=== PATIENT | female | born 1955 | race Hispanic/Latino ===

== ENCOUNTER 2018-06-02 15:25 | Outpatient (CLI) | payer OTHER | END 2018-06-02 15:26 | disposition home or self-care (01) | LOC: BICULT 15:25 | PROVIDERS: ATTEND Internal Medicine | DX: R09.89 Other specified symptoms and signs involving the circulatory and respiratory systems (principal); I65.21 Occlusion and stenosis of right carotid artery | CPT/HCPCS: 93880 ==

== ENCOUNTER 2018-12-31 22:30 | Emergency (ER) | payer SELFPAY ==
--- NOTE | 2018-12-31 23:02 | RAD ---
CHEST TWO VIEWS: 12/31/18 HISTORY: Cough, x 2 weeks. COMPARISON: 06/16/15. FINDINGS: Normal cardiac silhouette. The lungs and pulmonary vessels and hilum are normal. Costophrenic angles are clear. Hyperinflation with chronic changes. No masses. No consolidation. No pneumothorax or osseo us abnormalities. IMPRESSION: No acute cardiopulmonary process. POS: [facility]
[2018-12-31] MEDS ORDERED: cloNIDine 0.1 MG TAB ONE (23:35)
== END 2019-01-01 00:26 | disposition home or self-care (01) ==
LOC: ERS 22:30
DX: J20.9 Acute bronchitis, unspecified (principal); I10 Essential (primary) hypertension; E11.9 Type 2 diabetes mellitus without complications; E78.5 Hyperlipidemia, unspecified; Z79.899 Other long term (current) drug therapy; Z79.4 Long term (current) use of insulin
CPT/HCPCS: 71046; 93005

== ENCOUNTER 2019-07-19 21:32 | Inpatient (IN) | payer MEDICAID, SELFPAY ==
[~2019-07-19 21:32] MED LIST: ISOVUE-370 76%-LOCM 1 ML ONE
--- NOTE | 2019-07-19 21:56 | RAD ---
XR Chest 1 View Portable History: Shortness of breath and cough Comparison: Radiograph December 31, 2018 Findings: Abnormal opacities throughout both lower lobes, lingula, right middle lobe, both upper lobe s. Small effusions. No pneumothorax. No acute osseous abnormality. Impression: Findings concerning for multifocal pneumonia. Follow-up after treatment recommended.
[2019-07-19 22:14] LABS: #Basophils 0.1 thou/uL (0.0-0.2); #Eosinphils 0.1 thou/uL (0.0-0.7); #Lymphocytes 1.8 thou/uL (1.20-3.40); #Monocytes 0.6 thou/uL (0.11-0.59); #Neutrophils 8.8 thou/uL (1.40-6.50); %Basophils 0.6 % (0.0-1.0); %Eosinophils 0.5 % (0.0-10.0); %Lymphocytes 15.8 % (21.0-51.0); %Monocytes 4.9 % (0.0-10.0); %Neutrophils 78.2 % (42.0-75.0); Hemoglobin 8.1 g/dL (12.0-16.0); Mean Corpuscular HGB CONC 33.6 g/dL (32.0-36.0); Mean Corpuscular Volume 80.3 fL (78.0-98.0); Mean Platelet Volume 7.4 fL (7.4-10.4); Platelet Count 339 thou/uL (130-400); RBC Distribution Width 13.3 % (11.5-14.5); Red Blood Cell (RBC) Count 3.02 mill/uL (4.20-5.40); White Blood Cell (WBC) Count 11.2 thou/uL (4.8-10.8)
[2019-07-19] MEDS ORDERED: Azithromycin 500 MG VIAL ONE (22:15)
[2019-07-19 22:37] LABS: ALT (SGPT) 61 U/L (8-55); AST (SGOT) 81 U/L (5-34); Albumin 3.5 g/dL (3.4-4.8); Alkaline Phosphatase 177 U/L (40-110); Anion Gap 15 mmol/L (10-20); BUN (Urea Nitrogen) 36 mg/dL (9.8-20.1); Bilirubin, Total 0.2 mg/dL (0.2-1.2); Calc. Creatinine Clearance 0 mL/min (70-130); Calcium 8.2 mg/dL (7.8-10.44); Carbon Dioxide 22 mmol/L (23-31); Chloride 96 mmol/L (98-107); Estimated GFR-MDRD 23; Globulin 3.5 g/dL (2.4-3.5); Glucose 306 mg/dL (80-115); Potassium 4.9 mmol/L (3.5-5.1); Sodium 128 mmol/L (136-145)
[2019-07-19] MEDS ORDERED: Enoxaparin Sodium 100 MG/ML SYRINGE ONE (22:54)
[2019-07-19] MEDS ORDERED: Aspirin Chewable 81 MG TAB ONE (22:54)
[2019-07-19] MEDS ORDERED: Ondansetron PF 4 MG/2 ML Vial ONE (23:02)
[2019-07-19 23:06] LABS: CKMB 2.6 ng/mL (0-6.6)
[2019-07-19] MEDS ORDERED: Norepinephrine 4 MG/4 ML VIAL ONE (23:24)
[2019-07-19] MEDS ORDERED: EPINEPHrine 1 MG/10 ML Abboject SYRINGE ONE (23:29)
[2019-07-19] MEDS ORDERED: EPINEPHrine 1 MG/ML AMP ONE (23:29)
[2019-07-19] MEDS ORDERED: Norepinephrine 8 MG in Dextrose 5% in Water 242 ML IVPB PRN (23:29)
[2019-07-19] MEDS ORDERED: Succinylcholine Chloride 20 MG/ML 10 ml SYRINGE FS ONE (23:33)
[2019-07-19] MEDS ORDERED: Ketamine 50 MG/ML (10ML VIAL) ONE (23:34)
[2019-07-19] MEDS ORDERED: fentaNYL Citrate/PF 2,000 MCG in Sodium Chloride 0.9% 60 ML IV SCH (23:49)
--- NOTE | 2019-07-19 23:59 | RAD ---
XR Chest 1 View Portable History: Intubation. OG tube. Comparison: Radiograph same day Findings: Patient is intubated endotracheal tube tip at level of clavicles in good position. Enteric tube tip is below diaphragm although out of field of view. Multiple airspace opacities are similar. Likely small effusions. Impression: Satisfactory placement of enteric and endotracheal tubes.
[2019-07-20 00:25] LABS: Actual Bicarbonate (HCO3a) 14.9 mEq/L (22-28); Analyzer IN Cardio ER; Base Excess (BEa) -11.7 mEq/L (-2.0 to +3.0); CO2 Tension 36.2 mmHg (35.0-45.0); Calcium, Ionized 1.04 mmol/L (1.12-1.30); Carboxyhemoglobin (COHb) 0.4 gm% (0.0-3.0); Hemoglobin (Hb) 7.8 g/dL (12.0-16.0); Potassium - ABG Lab 4.51 mmol/L (3.70-5.30)
[2019-07-20] MEDS ORDERED: Acetaminophen 650 MG Suppository PR PRN (00:28)
[2019-07-20] MEDS ORDERED: Ondansetron ODT 4 MG TAB PO PRN (00:28)
[2019-07-20] MEDS ORDERED: Ventilator Sedation Protocol 1 EACH FS SCH (00:28)
[2019-07-20] MEDS ORDERED: Norepinephrine 8 MG in Dextrose 5% in Water 242 ML IVPB SCH (00:30)
[2019-07-20 00:34] LABS: pH, Arterial 7.23 (7.35-7.45)
[2019-07-20 00:35] LABS: O2 Tension (PaO2) 45.6 mmHg (> 80.0); Puncture Site RBA
[2019-07-20] MEDS ORDERED: Propofol 1,000 MG/100 ML VIAL IV ONE (00:41)
[2019-07-20] MEDS ORDERED: cefTRIAXone\\ROCEPHIN 2 GM VIAL ONE (00:41)
[2019-07-20] MEDS ORDERED: Morphine 2 MG/ML SYRINGE SLOW IVP PRN (00:42)
[2019-07-20] MEDS ORDERED: fentaNYL Citrate/PF 2,000 MCG in Sodium Chloride 0.9% 60 ML IV SCH (00:42)
[2019-07-20] MEDS ORDERED: Fentanyl BOLUS 250 ML IVPB PRN (00:42)
[2019-07-20] MEDS ORDERED: DISCONTINUE PREVIOUS NARCOTIC PAIN MEDICATIONS AND BENZODIAZEPINES FS SCH (00:42)
[2019-07-20] MEDS ORDERED: Propofol 1,000 MG/100 ML VIAL IV PRN (00:42)
[2019-07-20] MEDS ORDERED: Propofol BOLUS 1,000 MG/100 ML VIAL IV PRN (00:42)
[2019-07-20 01:52] LABS: Critical Call Chem Troponin I RESULT DECREASING; Troponin I 1.081 ng/mL (< 0.028)
[2019-07-20] MEDS ORDERED: Vancomycin HCl 1 GM in Premix Bag 1 BAG IVPB SCH (03:00)
[2019-07-20] MEDS ORDERED: Dextrose 50% Abboject 50 ML SYRINGE SLOW IVP PRN (05:18)
[2019-07-20] MEDS ORDERED: Dextrose 5% in Water 1,000 ML IV PRN (05:18)
[2019-07-20 05:30] LABS: #Monocytes 0.5 thou/uL (0.11-0.59); #Neutrophils 9.9 thou/uL (1.40-6.50); %Basophils 0.1 % (0.0-1.0); %Eosinophils 0.3 % (0.0-10.0); %Lymphocytes 8.6 % (21.0-51.0); %Monocytes 4.6 % (0.0-10.0); %Neutrophils 86.5 % (42.0-75.0); Hemoglobin 7.5 g/dL (12.0-16.0); Mean Corpuscular Hemoglobin 27.6 pg (27.0-31.0); Mean Corpuscular Volume 83.6 fL (78.0-98.0); Mean Platelet Volume 7.5 fL (7.4-10.4); Platelet Count 275 thou/uL (130-400); RBC Distribution Width 13.4 % (11.5-14.5); Red Blood Cell (RBC) Count 2.72 mill/uL (4.20-5.40); White Blood Cell (WBC) Count 11.4 thou/uL (4.8-10.8)
[2019-07-20 05:40] LABS: Anion Gap 15 mmol/L (10-20); BUN (Urea Nitrogen) 35 mg/dL (9.8-20.1); Calc. Creatinine Clearance 25 mL/min (70-130); Calcium 7.4 mg/dL (7.8-10.44); Carbon Dioxide 17 mmol/L (23-31); Chloride 99 mmol/L (98-107); Estimated GFR-MDRD 25; Glucose 383 mg/dL (80-115); Potassium 5.5 mmol/L (3.5-5.1); Sodium 125 mmol/L (136-145)
[2019-07-20 05:50] LABS: Critical Call Chem Troponin I RESULT DECREASING; Troponin I 1.067 ng/mL (< 0.028)
--- NOTE | 2019-07-20 06:45 | HP ---
CODE STATUS: Full code. TIME OF EVALUATION: 12 a.m. CHIEF COMPLAINT: Ongoing chest pain. HISTORY OF PRESENT ILLNESS: This is a 64-year-old female patient with past medical history of diabetes type 2, hyperlipidemia, hypertension, came to the hospital after having severe gradually worsening chest pain associated with dry cough, shortness of breath for the past 2 to 3 days with no clear triggers, no alleviating factors. Symptoms were severe. While in the ER, the patient developed severe shortness of breath and in severe distress, was intubated, sedated. The CAT scan showed bilateral pleural effusion and also possible bilateral pneumonia. The patient's troponin was 1.0 and treatment was started for Non-STEMI. Dr. Horner has been called due to appearance of new LBBB in one of the EKGs and we will follow recommendations. REVIEW OF SYSTEMS: Unable to obtain at the time of my examination. The patient was intubated and sedated. PAST MEDICAL HISTORY: The patient has diabetes type 2, high cholesterol, hypertension. Reportedly, the patient is compliant. SURGICAL HISTORY: . PSYCHIATRIC HISTORY: No previous psychiatric history. SOCIAL HISTORY: No alcohol, no drugs, no smoking history. KNOWN ALLERGIES: No known drug allergies. REPORTED MEDICATION: 1. Lisinopril. 2. Levemir. 3. NovoLog. 4. Levothyroxine. PHYSICAL EXAMINATION: VITAL SIGNS: On presentation, the patient had blood pressure 131/63 with heart rate 99, respiratory rate was 28, temperature 98.2, pain was 7/10, oxygen saturation was 95% on room air. The patient went into hypotension and shock. The patient was started on Levophed to keep blood pressure within normal range. GENERAL APPEARANCE: The patient is intubated and sedated. HEENT: Eyes, normal conjunctivae. Dry oral mucosa. Anicteric. No JVD. RESPIRATORY: Bilateral air entry. No rales. No wheezes. The patient is intubated. The patient has bilateral wheezing. No rales. CARDIOVASCULAR: Normal rate, regular rhythm. No murmurs. No gallop. No edema. ABDOMEN: Soft. Normal bowel sounds. MUSCULOSKELETAL: Baseline range of motion and strength. SKIN: Warm, intact. No pallor. No rash. No redness. Capillary refill seems to be intact. NEUROLOGIC: No evidence of any new focal weakness. Cranial nerves seems to be intact. PSYCHIATRIC: The patient is unable to explore. The patient is intubated and sedated. DIAGNOSTIC STUDIES: EKG was done. The patient has inferolateral ischemia in EKG #1. With EKG #2, there is a complete LBBB with QT of 508. In the EKG #3, the patient has normal sinus rhythm at the rate of 79, the LBBB was not seen again. Chest CTA with finding of diffuse scattered bilateral pulmonary opacities and septal thickening concerning for cardiogenic pulmonary edema. Diagnosis includes diffuse pneumonia correlating with clinical presentation and lab findings. Large bilateral pleural effusions. No aortic aneurysm or dissection. Abdomen CTA with finding with mild perihepatic free fluid and gallbladder wall thickening. In the absence of abdominal symptoms, this finding should be cardiogenic in nature, correlating with echocardiogram for cardiac function. No arterial vasculature in the visualized abdomen. LABORATORY DATA: Labs were reviewed. The patient has white count 11.2, hemoglobin 8.1 that is new. On previous visit, the patient had a hemoglobin of 13, MCV was 80.3, platelet count 339. Blood gas, the patient has a pH 7.23, pCO2 36.2, PO2 45. This was done on SIMV, mechanical rate 18, inspired oxygen 50, tidal volume 500, PEEP 5. Chemistry; sodium 128, potassium 4.9, chloride 96, carbon dioxide 22, creatinine was 2.16, in previous admission it was normal. Glucose 306. Lactic acid 2.9, repeat one 3.0. The initial troponin was 1.22, the second one 1.081 with LFTs mildly elevated, beta natriuretic peptide was 2149. ASSESSMENT AND PLAN: The patient will be placed in the hospital with following medical problems: 1. Acute exacerbation of congestive heart failure. The patient has bilateral pleural effusion. The patient with pulmonary edema, probably might be some pneumonia underlying it. The patient has elevated proBNP. The patient has been intubated. Dr. Horner has been consulted. We will follow recommendations. 2. Yuj-IY-gotutyyca myocardial infarction. The patient has a troponin of 1.2, the second one is 1.081. The patient has received Lovenox. Dr. Horner will see the patient and will follow recommendations, likely to go for catheterization if agreeable by Cardiology. 3. Lactic acidosis, likely due to persistent hypotension in the range of 2.9 and 3.0. 4. Uncontrolled diabetes with blood sugar of 306. The patient has been started on insulin. 5. Respiratory acidosis due to CO2 retention. The patient has been intubated, is receiving ventilatory support. Pulmonology has been consulted. We will follow recommendations. 6. Hyponatremia, sodium 128. This is moderate. No significant symptoms from it. The patient received IV fluids. This will need to be monitored and treated accordingly. 7. Acute kidney injury. The patient has a creatinine of 2.16; on previous admission, it was normal. This is likely due to possibly being cardiorenal. We will continue to monitor kidney function, might need to be seen by Nephrology if not improving. 8. Acute anemia. No blood loss has been identified. The patient has a previous hemoglobin that was around 15. We will monitor hemoglobin and treat accordingly. We will watch as needed for any possibility of bleeding. CAT scan has not shown any blood collection either in the chest or the abdomen. We will continue to monitor and treat accordingly. 9. Acute hypoxic respiratory failure with hypercapnia, likely due to underlying pneumonia and congestive heart failure. The patient is receiving ventilatory support. We will follow Pulmonary recommendation. 10. Possible multifocal pneumonia as reported previously in the chest x-ray, there is a possibility. The patient has been started on ventilatory support due to acute respiratory failure, that we will continue for now. The patient has been started on broad-spectrum antibiotics until picture has been more clarified. 11. Deep venous thrombosis prophylaxis. The patient received full dose of Lovenox. We will continue with prophylaxis. critical care time 40 min spent in medication reconciliation, plan discussion with er physician, bedside assessment and stabilization of pt Job ID: [id number] MTDEdis
[2019-07-20] MEDS: HumaLOG 300 UNITS/3 ML VIAL SC PRN (07:31)
--- NOTE | 2019-07-20 07:52 | CT ---
PRELIMINARY REPORT/[facility]/EMERGENCY AFTER HOURS PROCEDURE: PROCEDURE INFORMATION: Exam: CT Angiography Chest With Contrast Exam date and time: 07/19/2019 11:57 PM Clinical history: 64 years old, female; Dyspnea and shortness of breath; Patient HX: F64 presents to ED with C/O chest pain, dry cough, and SOB onset 2-3 days ago that got progressively worse tonight. Family reports patient appears more pale than usual. Patient denies smoking, or HX of copd/asthma. TECHNIQUE: Imaging protocol: Computed tomographic angiography of the chest with intravenous contrast. 3D rendering: MIP reconstructed images were created and reviewed. COMPARISON: No relevant prior studies available. FINDINGS: Pulmonary arteries: No definite pulmonary emboli. Aorta: Unremarkable. No aortic aneurysm. No aortic dissection. Lungs: There are diffuse scattered bilateral patchy opacities throughout the lung parenchyma in addit ion to diffuse septal thickening, which may be secondary to pulmonary edema versus infectious etiolog y in the upper right clinical setting. Pleural space: No pneumothorax. There are large bilateral pleural effusions. Heart: The left atrium is slightly prominent in size. No pericardial effusion. Lymph nodes: Unremarkable. No enlarged lymph nodes. Bones/joints: Unremarkable. No acute fracture. Soft tissues: Unremarkable. IMPRESSION: 1. Diffuse scattered bilateral patchy pulmonary opacities and septal thickening, concerning for cardi ogenic pulmonary edema. Differential diagnosis includes diffuse pneumonia. Correlate with clinical pr esentation and laboratory findings. 2. Large bilateral pleural effusions. 2. No aortic aneurysm or dissection. PROCEDURE INFORMATION: Exam: CT Angiography Abdomen With Contrast Exam date and time: 07/19/2019 11:57 PM Clinical history: 64 years old, female; Dyspnea and shortness of breath; Patient HX: F64 presents to ED with C/O chest pain, dry cough, and SOB onset 2-3 days ago that got progressively worse tonight. F amily reports patient appears more pale than usual. Patient denies smoking, or HX of copd/asthma. TECHNIQUE: Imaging protocol: Computed tomographic angiography images of the abdomen with intravenous contrast ma terial. 3D rendering: MIP reconstructed images were created and reviewed. COMPARISON: No relevant prior studies available. FINDINGS: VASCULATURE: Aorta: No aortic aneurysm. No aortic dissection. Celiac trunk and mesenteric arteries: No occlusion or significant stenosis. Renal arteries: No occlusion or significant stenosis. ABDOMEN: Liver: Perihepatic free fluid is noted. Gallbladder and bile ducts: No calcified stones. No ductal dilation. Gallbladder with wall edema is n oted, which could be related to pulmonary edema. Pancreas: Normal. No ductal dilation. Spleen: Normal. No splenomegaly. Adrenals: Normal. No mass. Kidneys and ureters: Normal. No hydronephrosis. Stomach and bowel: An enteric tube is noted with its tip in the antrum of the stomach. No obstruction . No mucosal thickening. Intraperitoneal space: Trace ascites is noted. No free air. Bones/joints: No acute fracture. No dislocation. Soft tissues: Unremarkable. Lymph nodes: Unremarkable. No enlarged lymph nodes. IMPRESSION: 1. Mild perihepatic free fluid and gallbladder wall thickening. In the absence of abdominal symptoms, these findings could be cardiogenic in nature. Correlate with echocardiogram for cardiac function. 2. No abdominal aortic aneurysm. Patent arterial vasculature in the visualized abdomen. Thank you for allowing us to participate in the care of your patient. Dictated and Authenticated by: Ness Fletcher MD 07/20/2019 12:46 AM Central Time ([place] & [place]) FINAL REPORT CT ANGIOGRAM OF THE CHEST WITH IV CONTRAST AND 3D POSTPROCESSING CT ANGIOGRAM OF THE ABDOMEN WITH IV CONTRAST AND 3D POSTPROCESSING: Date: 07/19/19 I agree with the preliminary report given by Tracy. POS: [facility]
[2019-07-20 08:05] LABS: Actual Bicarbonate (HCO3a) 17.2 mEq/L (22-28); Base Excess (BEa) -3.8 mEq/L (-2.0 to +3.0); Calcium, Ionized 1.04 mmol/L (1.12-1.30); Carboxyhemoglobin (COHb) 2.2 gm% (0.0-3.0); Hemoglobin (Hb) 7.1 g/dL (12.0-16.0); O2 Tension (PaO2) 188.2 mmHg (> 80.0); Potassium - ABG Lab 4.65 mmol/L (3.70-5.30)
[2019-07-20 08:06] LABS: ALV-art Gradient 145.425 (0-20); CO2 Tension 18.3 mmHg (35.0-45.0); Puncture Site LRA; pH, Arterial 7.59 (7.35-7.45)
[2019-07-20] MEDS ORDERED: Enoxaparin Sodium 30 MG/0.3 ML SYRINGE SC SCH (09:00)
[2019-07-20] MEDS ORDERED: Enoxaparin Sodium 40 MG/0.4 ML SYRINGE SC SCH (09:00)
[2019-07-20] MEDS: Lorazepam 2 MG/ML VIAL SLOW IVP PRN (10:30)
[2019-07-20] MEDS ORDERED: Furosemide 40 MG/4 ML VIAL SLOW IVP SCH (11:30)
[2019-07-20] MEDS: DOBUTamine 500 mg/250 ml 500 MG in Premix Bag 1 BAG IVPB SCH (15:14)
--- NOTE | 2019-07-20 15:17 | CON ---
DATE OF CONSULTATION: HISTORY OF PRESENT ILLNESS: The patient is an unfortunate 64-year-old woman, who presented with dyspnea and was noted to be in respiratory failure. The patient apparently has had a previous myocardial infarction. She is intubated, unable to give a coherent history. The patient presented with increasing cough and dyspnea. She developed progressive renal, respiratory failure, and was subsequently intubated. PAST MEDICAL HISTORY: Significant for, 1. Diabetes mellitus. 2. Hypertension. PAST SURGICAL HISTORY: . SOCIAL HISTORY: Nonsmoker. ALLERGIES: NO KNOWN DRUG ALLERGIES. MEDICATIONS: See nursing list. PHYSICAL EXAMINATION: GENERAL: Intubated woman. VITAL SIGNS: Blood pressure 106/65, heart rate 72. NECK: No jugular venous distention. LUNGS: Have crackles throughout both lung holm. HEART: Regular rate and rhythm. Normal S1 and S2. ABDOMEN: Nondistended. EXTREMITIES: Show no edema. LABORATORY RESULTS: Revealed her to have her sodium was 125, potassium 5.5, chloride 99, BUN 35, creatinine 1.9, glucose 383. Troponin 1.0. BNP 2149. White blood cell count 11.4, hemoglobin 7.5, hematocrit 22.8, and platelets 275. IMAGING STUDIES: Her EKG reveals her to have normal sinus rhythm with a left bundle-branch block. Chest x-ray revealed cardiomegaly, diffuse infiltrate suggestive of pulmonary edema. IMPRESSION AND PLAN: 1. Respiratory failure. 2. Congestive heart failure. 3. Possible pneumonia. 4. Renal insufficiency. 5. Diabetes mellitus. This patient presents with respiratory failure. She appears to be in pulmonary edema. We will check the patient's echocardiogram. We will follow this patient with you through her hospitalization. This is a critical care note, the time is 1 hour, in the office. Job ID: [id number]
--- NOTE | 2019-07-20 16:22 | CON ---
DATE OF CONSULTATION: 07/20/2019 SERVICE: Pulmonary Medicine. REASON FOR CONSULTATION: ICU patient. HISTORY OF PRESENT ILLNESS: The patient is a 64-year-old female with past medical history significant for type 2 diabetes mellitus and dyslipidemia, who presented to the hospital with chest discomfort. This was associated with cough and shortness of breath for 2 to 3 days. She is currently intubated and sedated. As such, I cannot provide any additional elements of the history from her. The family reports no fevers or chills. Apparently, she has had a lack of appetite for a couple of days. PAST MEDICAL HISTORY: 1. Type 2 diabetes mellitus. 2. Dyslipidemia. 3. Hypertension. PAST SURGICAL HISTORY: section. FAMILY HISTORY: Noncontributory. SOCIAL HISTORY: Negative for alcohol, tobacco, or illicit drug use based on what the family is telling me. ALLERGIES: NO KNOWN DRUG ALLERGIES. MEDICATIONS: List of her inpatient medications was reviewed. No specific updates were made at this time. REVIEW OF SYSTEMS: This cannot be obtained as the patient is currently intubated and sedated. PHYSICAL EXAMINATION: VITAL SIGNS: Afebrile, pulse 75, blood pressure 113/66, respirations 9, and saturation 100%, currently on 23% FiO2 and a PEEP of 5. GENERAL: The patient is intubated and sedated. HEENT: Normocephalic and atraumatic. Sclerae white. Conjunctivae pink. Oral mucosa is moist without lesions. LUNGS: Extensive crackles and minimal rhonchi are present. There is decreased air entry at the bibasilar regions. HEART: Normal rate and regular. ABDOMEN: Soft, nontender, and nondistended. Bowel sounds are positive. MUSCULOSKELETAL: No cyanosis or clubbing. There is no pitting in the bilateral lower extremities. NEUROLOGIC: Grossly nonfocal. LABORATORY DATA: WBC 11.4, hemoglobin 7.5, platelets 275,000. PH 7.59, pCO2 of 18, pO2 of 188. Creatinine 1.98, BUN 35. Potassium 5.5, sodium 125. Basic metabolic profile is otherwise unremarkable. BNP 2100, troponin is downtrending to 1.06. Lactate is stable at 3.0. Liver function studies including AST, ALT, and alkaline phosphatase are minimally elevated. Albumin is 3.5. Blood cultures x2 are unremarkable. IMAGIN. CT dissection protocol demonstrates no evidence of dissection. She has bilateral pleural effusions, which are moderate in size. She also has extensive ground- glass opacifications, overt consolidating areas, and interstitial fullness. All of these findings are certainly consistent with a volume overloaded state. That being said, an underlying infection cannot be excluded. 2. Echocardiogram demonstrates a 20% to 25% ejection fraction. She has a dilated left atrium, dilated IVC, and moderate mitral regurgitation. There is a small pericardial effusion, but no mention of tamponade physiology. There is pseudonormalization of her E to A ratio. ASSESSMENT: 1. Acute hypoxic respiratory failure, resolved. 2. Acute systolic heart failure. 3. Hypothyroidism. 4. Type 2 diabetes mellitus. 5. Hyponatremia. 6. Hyperkalemia. 7. Anemia, normocytic. 8. Acute kidney injury, verses chronic kidney disease. DISCUSSION AND PLAN: We will diurese the patient through time. She will be supported on mechanical ventilator for the next 24 hours. TSH, type and screen will be performed tomorrow morning. We will also check an JORGE. I will continue to wean oxygen through time, but I would like for the dust to settle for an additional 24 hours before we consider extubating the patient. This will likely be performed first thing in the morning. We can continue the antibiotics, but strictly told , I do not think that they are helping us in any significant way. I am doubtful there is a true infection underlying this massive pulmonary edema event. Multiple adjustments have been made to the ventilator to back off on her minute volume. CRITICAL CARE TIME: 30 minutes. Job ID: [id number] MTDD
[2019-07-20] MEDS: Spironolactone 25 MG TAB PO SCH ×2 (20:39→20:50)
[2019-07-20 20:55] LABS: Bilirubin Negative (Negative); Blood, Urine 1+ (Negative); Clarity Turbid (Clear); Glucose, Urine (Dipstick) Normal (Negative); Leukocyte 500 Leu/uL (Negative); Nitrite Negative (Negative); Protein, Urine (Dipstick) 30 mg/dL (Neg-Trace); Squamous Epithelial 0-3 HPF (0-3); Transitional Epithelial 0-3 HPF (None Seen); Urobilinogen Normal mg/dL (Less than 2); WBC/HPF Greater than 50 HPF (0-3)
[2019-07-20] MEDS ORDERED: FLU VACC QS2019-20(6MOS UP)/PF 60 MCG/0.5 ML SYRINGE IM ONE (21:00)
[2019-07-20 21:10] LABS: Bacteria/HPF 2+ HPF (None Seen)
[2019-07-20 21:11] LABS: Urine Culture Reflex Yes Yes
[2019-07-20] MEDS: Furosemide 40 MG/4 ML VIAL SLOW IVP SCH (21:48)
[2019-07-20] MEDS: cefTRIAXone\\ROCEPHIN 1 GM in Sodium Chloride 0.9% 100 ML IVPB SCH (21:48)
[2019-07-21] MEDS: Azithromycin 500 MG in Sodium Chloride 0.9% 250 ML 250 ML IVPB SCH (00:29)
[2019-07-21] MEDS: HumaLOG 300 UNITS/3 ML VIAL SC PRN ×3 (00:30→18:45)
[2019-07-21] MEDS: Lorazepam 2 MG/ML VIAL SLOW IVP PRN (00:51)
[2019-07-21] MEDS ORDERED: Vancomycin HCl 500 MG in Sodium Chloride 0.9% 100 ML IVPB SCH (03:00)
[2019-07-21 04:43] LABS: INR-International Normal Ratio 1.2; Prothrombin Time 15.2 SEC (12.0-14.7)
[2019-07-21 04:55] LABS: Band 3 % (5-11); Hemoglobin 6.7 g/dL (12.0-16.0); Hypochromia MODERATE=16-30 cells (100X) (0-5/hpf); Lymphocytes 6 % (21-51); MDiff Complete? YES; Mean Corpuscular HGB CONC 32.1 g/dL (32.0-36.0); Mean Platelet Volume 7.3 fL (7.4-10.4); Monocytes 4 % (0-10); Neutrophil 87 % (42-75); Phosphorus 5.8 mg/dL (2.3-4.7); Platelet Count 281 thou/uL (130-400); Platelet Morphology Comment Appears Adequate; RBC Distribution Width 14.1 % (11.5-14.5); Reflex for Review?? YES; White Blood Cell (WBC) Count 13.2 thou/uL (4.8-10.8)
[2019-07-21 04:58] LABS: Anion Gap 14 mmol/L (10-20); BUN (Urea Nitrogen) 38 mg/dL (9.8-20.1); Calc. Creatinine Clearance 18 mL/min (70-130); Calcium 7.8 mg/dL (7.8-10.44); Carbon Dioxide 18 mmol/L (23-31); Chloride 100 mmol/L (98-107); Estimated GFR-MDRD 18; Glucose 224 mg/dL (80-115); Magnesium 2.1 mg/dL (1.6-2.6); Potassium 5.4 mmol/L (3.5-5.1); Sodium 127 mmol/L (136-145)
[2019-07-21] MEDS ORDERED: Furosemide 40 MG/4 ML VIAL SLOW IVP SCH (06:00)
[2019-07-21] MEDS: Spironolactone 25 MG TAB PO SCH (09:19)
[2019-07-21] MEDS: Enoxaparin Sodium 30 MG/0.3 ML SYRINGE SC SCH (09:20)
[2019-07-21] MEDS: Furosemide 40 MG/4 ML VIAL SLOW IVP SCH ×2 (09:20→20:32)
[2019-07-21 09:22] LABS: Reticulocyte Count 3.6 % (0.5-1.5)
--- NOTE | 2019-07-21 09:45 | PRG ---
DATE OF SERVICE: 07/21/2019 SERVICE: Pulmonary Medicine. INTERVAL HISTORY: The patient is doing really well from respiratory standpoint. She has been weaned down to 21% FiO2 and a PEEP of 5 overnight. She was identified as having severe systolic heart failure and initiated on dobutamine. She cannot provide any additional elements of the history right now because she is currently requiring some sedation. Otherwise, there were no significant events overnight. Her urine output did drop off a little bit, but yesterday, she responded nicely to the Lasix. PHYSICAL EXAMINATION: VITAL SIGNS: Afebrile. Pulse 99, blood pressure 107/56, respirations 9, saturation 100% on 21% FiO2, and a PEEP of 5. GENERAL: The patient is intubated and sedated. HEENT: Normocephalic and atraumatic. Sclerae white. Conjunctivae pink. Oral mucosa is moist without lesions. LUNGS: Decent air entry. Crackles are improved. There is still decreased air entry at the bibasilar regions. HEART: Normal rate, regular. ABDOMEN: Soft, nontender, nondistended. Bowel sounds are positive. MUSCULOSKELETAL: No cyanosis or clubbing. There is no pitting in the bilateral lower extremities. NEUROLOGIC: Grossly nonfocal. LABORATORY DATA: WBC 13.2, hemoglobin 6.7 and downtrending, and platelets 281, 000. INR 1.2. PH 7.59. Creatinine 2.73 and significantly increasing. Sodium 127, potassium 5.4, and roughly stable. Magnesium and phosphorous fall within the normal limits. TSH 2.5. Blood cultures x2 are unremarkable. ASSESSMENT: 1. Acute hypoxic respiratory failure, resolved. 2. Acute systolic heart failure. 3. Anemia, normocytic. 4. Hyponatremia, improving. 5. Hyperkalemia, stable. DISCUSSION AND PLAN: We will continue to diurese the patient through time. I am going to give her 2 units of blood because of her severe anemia, which is likely are symptomatic and possibly contributing to her presentation. I will give her a spontaneous breathing trial. If she meets criteria, extubation will be considered. Pulmonary/Critical Care will continue to follow along for now. Critical care time: 30 minutes. Job ID: [id number] MTDD
[2019-07-21] MEDS: cefTRIAXone\\ROCEPHIN 1 GM in Sodium Chloride 0.9% 100 ML IVPB SCH (20:32)
[2019-07-21] MEDS ORDERED: hydrALAZINE 10 MG TAB PO SCH ×2 (21:00)
[2019-07-21] MEDS: Ondansetron PF 4 MG/2 ML Vial IVP PRN (21:09)
--- NOTE | 2019-07-21 22:30 | PDOC.HOSPP ---
- Subjective Subjective: Non-verbal. - Objective Vital Signs & Weight: Vital Signs (12 hours) Temp Pulse Resp BP Pulse Ox 07/21/19 20:33 100 07/21/19 20:00 99.2 F 100 07/21/19 17:00 99.8 F H 07/21/19 16:49 100.1 F H 14 100 07/21/19 16:00 100 F H 100 07/21/19 15:00 100.1 F H 07/21/19 14:40 100 17 9 L 07/21/19 14:00 99.9 F H 07/21/19 13:45 99.7 F H 13 100 07/21/19 13:25 98.8 F 14 100 07/21/19 13:24 99.8 F H 13 100 07/21/19 13:00 99.8 F H 07/21/19 12:00 99.9 F H 12 100 07/21/19 11:20 98.1 F 12 100 07/21/19 11:00 98.7 F 07/21/19 10:44 96 110/56 L Weight Admit Weight 121 lb Weight 121 lb 11.123 oz Most Recent Monitor Data Heart Rate from ECG 108 NIBP 132/72 NIBP BP-Mean 92 Respiration from ECG 16 SpO2 99 I&O: 07/20/19 07/21/19 07/22/19 06:59 06:59 06:59 Intake Total 54.3 941.9 297 Output Total 280 1485 733 Balance -225.7 -543.1 -436 Result Diagrams: 07/25/19 04:46 07/26/19 08:11 Additional Labs: Accuchecks 07/21/19 07/21/19 07/21/19 18:25 13:09 06:09 POC Glucose 177 H 234 H 159 H 07/21/19 00:14 POC Glucose 171 H Hospitalist ROS - Medication Medications: Active Medications Generic Name Dose Route Start Last Admin Trade Name Freq PRN Reason Stop Dose Admin Enoxaparin Sodium 30 mg 07/21/19 09:00 07/21/19 09:20 Lovenox SC 30 mg 0900 SHILO Administration Furosemide 40 mg 07/20/19 21:00 07/21/19 20:32 Lasix SLOW IVP 40 mg BID SHILO Administration Hydralazine HCl 10 mg 07/21/19 21:00 07/21/19 20:33 Apresoline PO Not Given TID SHILO Ceftriaxone Sodium 1 gm/ 100 mls @ 200 mls/hr 07/20/19 21:00 07/21/19 20:32 Sodium Chloride IVPB 100 mls Q24HR SHILO Administration Azithromycin 500 mg/ Sodium 250 mls @ 250 mls/hr 07/21/19 01:00 07/21/19 00: 29 Chloride IVPB 250 mls Q24HR SHILO Administration Dobutamine HCl/Dextrose 500 mg 250 mls @ 0 mls/hr 07/20/19 13:30 07/20/19 15: 14 / Device IVPB 250 mls INF SHILO Administration Protocol As Directed Insulin Human Lispro 0 units 07/20/19 05:18 07/21/19 18:45 Humalog SC 2 unit .MILD SLIDING SCALE PRN Administration Mild Correctional Scale Ondansetron HCl 4 mg 07/20/19 00:28 07/21/19 21:09 Zofran IVP 4 mg Q6H PRN Administration Nausea/Vomiting Sodium Chloride 10 ml 07/20/19 09:00 07/21/19 20:33 Flush - Normal Saline IVF 10 ml Q12HR SHILO Administration Spironolactone 25 mg 07/21/19 08:00 07/21/19 09:19 Aldactone PO Not Given QAM-WM SHILO - Exam General Appearance: NAD General - other findings: Awake, but minimally interactive with me. Heart: RRR, no murmur, no gallops, no rubs, normal peripheral pulses Respiratory: CTAB, no wheezes, no rales, no ronchi, normal chest expansion, no tachypnea, normal percussion Gastrointestinal: soft, non-tender, non-distended, normal bowel sounds, no palpable masses, no hepatomegaly, no splenomegaly, no bruit Extremities: no cyanosis, no clubbing, no edema Hosp A/P (1) DESTINY (acute kidney injury) Code(s): N17.9 - ACUTE KIDNEY FAILURE, UNSPECIFIED Status: Acute (2) Acute and chronic respiratory failure with hypoxia Code(s): J96.21 - ACUTE AND CHRONIC RESPIRATORY FAILURE WITH HYPOXIA Status: Acute (3) Acute systolic heart failure Code(s): I50.21 - ACUTE SYSTOLIC (CONGESTIVE) HEART FAILURE Status: Acute (4) Cardiomyopathy Code(s): I42.9 - CARDIOMYOPATHY, UNSPECIFIED Status: Acute (5) Anemia Code(s): D64.9 - ANEMIA, UNSPECIFIED Status: Chronic - Plan Pulmonary following. Heme Onc consulted. Diuresing. Transfusing. Renal function stable. Discussed with patient's family.
[2019-07-22] MEDS: DOBUTamine 500 mg/250 ml 500 MG in Premix Bag 1 BAG IVPB SCH (00:42)
[2019-07-22] MEDS: Azithromycin 500 MG in Sodium Chloride 0.9% 250 ML 250 ML IVPB SCH (01:59)
[2019-07-22 05:21] LABS: #Lymphocytes 0.7 thou/uL (1.20-3.40); #Monocytes 0.6 thou/uL (0.11-0.59); #Neutrophils 13.6 thou/uL (1.40-6.50); %Basophils 0.2 % (0.0-1.0); %Eosinophils 0.1 % (0.0-10.0); %Lymphocytes 4.3 % (21.0-51.0); %Monocytes 4.2 % (0.0-10.0); %Neutrophils 91.3 % (42.0-75.0); Hemoglobin 10.4 g/dL (12.0-16.0); Mean Corpuscular HGB CONC 34.4 g/dL (32.0-36.0); Mean Corpuscular Hemoglobin 28.9 pg (27.0-31.0); Mean Corpuscular Volume 84.2 fL (78.0-98.0); Mean Platelet Volume 7.5 fL (7.4-10.4); Platelet Count 231 thou/uL (130-400); Red Blood Cell (RBC) Count 3.58 mill/uL (4.20-5.40); White Blood Cell (WBC) Count 14.9 thou/uL (4.8-10.8)
[2019-07-22] MEDS: HumaLOG 300 UNITS/3 ML VIAL SC PRN (06:19)
[2019-07-22 07:53] LABS: Calcium 8.4 mg/dL (7.8-10.44); Chloride 100 mmol/L (98-107); Potassium 4.7 mmol/L (3.5-5.1); Sodium 130 mmol/L (136-145)
[2019-07-22 07:55] LABS: Anion Gap 19 mmol/L (10-20); Carbon Dioxide 16 mmol/L (23-31)
[2019-07-22 07:57] LABS: Calc. Creatinine Clearance 16 mL/min (70-130); Estimated GFR-MDRD 15
[2019-07-22 07:58] LABS: BUN (Urea Nitrogen) 45 mg/dL (9.8-20.1)
[2019-07-22 08:05] LABS: Glucose 180 mg/dL (80-115)
[2019-07-22] MEDS: Furosemide 40 MG/4 ML VIAL SLOW IVP SCH (08:49)
[2019-07-22] MEDS: Enoxaparin Sodium 30 MG/0.3 ML SYRINGE SC SCH (08:49)
[2019-07-22] MEDS: Nitroglycerin 0.4mg/Hour PATCH TD SCH (09:11)
--- NOTE | 2019-07-22 09:52 | PRG ---
DATE OF SERVICE: 07/22/2019 SERVICE: Pulmonary Medicine. INTERVAL HISTORY: The patient is doing really well from respiratory standpoint. Breathing comfortably. She is on room air. She extubated well yesterday. She took a while to wake up from the sedation, otherwise. She is following some simple commands. She is moving her bilateral upper and lower extremities. That being said, she does not tend if you go on the left side of the bed. She does not cross her eyes across midline, and seems to be neglecting the entire left side of the room. Otherwise, there were no events overnight. Her blood pressure has firmed up very nicely and her urine output remained excellent with the Lasix. PHYSICAL EXAMINATION: VITAL SIGNS: T-max 100.7, pulse 111, blood pressure 146/80, respirations 18, and saturation 100% on room air. GENERAL: The patient is awake and alert, in no apparent distress. LUNGS: Very good air entry. No prolonged expiratory phase or wheezing is present. There are no crackles. Dependently, there is decreased air entry. HEART: Normal rate, regular. ABDOMEN: Soft, nontender, and nondistended. Bowel sounds are positive. MUSCULOSKELETAL: No cyanosis or clubbing. There are no pitting in the bilateral lower extremities. NEUROLOGIC: She seems to have a left-sided neglect. LABORATORY DATA: WBC 14.9, hemoglobin 10.4, and platelets 231,000. Retic count is 3.6%. INR 1.2. Creatinine 3.14, BUN 45, bicarb 16, and sodium 130. Blood cultures x2 and urine culture are unremarkable. ASSESSMENT: 1. Acute hypoxic respiratory failure, resolved. 2. Acute systolic heart failure. 3. Anemia, normocytic. 4. Hyponatremia, improving. 5. Hyperkalemia, resolved. DISCUSSION AND PLAN: I will back off on the Lasix to once daily as she is approaching euvolemic quite rapidly. Because of the left-sided pipo-neglect, I would like to perform an MRI of the brain to look for underlying right frontoparietal lesions. We will continue to follow for the time being, but she remains stable for transition to the floor. Job ID: [id number] [facility]
[2019-07-22 10:18] LABS: Creatinine, Urine 22.32 mg/dL (47-110)
[2019-07-22] MEDS: Ondansetron PF 4 MG/2 ML Vial IVP PRN (10:58)
[2019-07-22 15:30] LABS: ANA Symphony (Qualitative) Negative (Negative); ANA Symphony (Quantitative) 0.2 Ratio (< 0.7 Negative); dsDNA IgG Antibody 1.1 IU/mL (<10 Negative)
--- NOTE | 2019-07-22 16:53 | PDOC.HOSPP ---
- Subjective Subjective: Patient will follow some commands, but otherwise not interactive. Family at the bedside says she is not really interacting with them normally. - Objective Vital Signs & Weight: Vital Signs (12 hours) Temp Pulse Ox 07/22/19 12:00 99.7 F H 07/22/19 10:16 99 07/22/19 08:00 98 07/22/19 07:00 100.7 F H Weight Admit Weight 121 lb Weight 121 lb 11.123 oz Most Recent Monitor Data Heart Rate from ECG 107 NIBP 141/80 NIBP BP-Mean 100 Respiration from ECG 21 SpO2 99 I&O: 07/21/19 07/22/19 07/23/19 06:59 06:59 06:59 Intake Total 941.9 838.7 0 Output Total 1485 1178 815 Balance -543.1 -339.3 -815 Result Diagrams: 07/22/19 03:40 07/22/19 03:40 Additional Labs: Accuchecks 07/22/19 07/22/19 07/22/19 12:02 06:13 00:15 POC Glucose 188 H 197 H 150 H 07/21/19 18:25 POC Glucose 177 H Hospitalist ROS - Medication Medications: Active Medications Generic Name Dose Route Start Last Admin Trade Name Freq PRN Reason Stop Dose Admin Acetaminophen 650 mg 07/20/19 00:28 07/22/19 10:58 Tylenol MO 650 mg Q4H PRN Administration Headache/Fever/Mild Pain (1-3) Enoxaparin Sodium 30 mg 07/21/19 09:00 07/22/19 08:49 Lovenox SC 30 mg 0900 SHILO Administration Ceftriaxone Sodium 1 gm/ 100 mls @ 200 mls/hr 07/20/19 21:00 07/21/19 20:32 Sodium Chloride IVPB 100 mls Q24HR SHILO Administration Azithromycin 500 mg/ Sodium 250 mls @ 250 mls/hr 07/21/19 01:00 07/22/19 01: 59 Chloride IVPB 250 mls Q24HR SHILO Administration Dobutamine HCl/Dextrose 500 mg 250 mls @ 0 mls/hr 07/20/19 13:30 07/22/19 00: 42 / Device IVPB 250 mls INF SHILO Administration Protocol As Directed Insulin Human Lispro 0 units 07/20/19 05:18 07/22/19 06:19 Humalog SC 2 unit .MILD SLIDING SCALE PRN Administration Mild Correctional Scale Nitroglycerin 1 patch 07/22/19 09:00 07/22/19 09:11 Nitro-Dur 0.4mg/Hr Patch TD 1 patch DAILY SHILO Administration Ondansetron HCl 4 mg 07/20/19 00:28 07/22/19 10:58 Zofran IVP 4 mg Q6H PRN Administration Nausea/Vomiting Sodium Chloride 10 ml 07/20/19 09:00 07/22/19 08:50 Flush - Normal Saline IVF 10 ml Q12HR SHILO Administration Spironolactone 25 mg 07/21/19 08:00 07/21/19 09:19 Aldactone PO Not Given QAM-WM SHILO - Exam General Appearance: NAD, awake alert Eye - other findings: Right gaze Heart: RRR, no murmur, no gallops, no rubs, normal peripheral pulses Respiratory: CTAB, no wheezes, no rales, no ronchi, normal chest expansion, no tachypnea, normal percussion Gastrointestinal: soft, non-tender, non-distended, normal bowel sounds, no palpable masses, no hepatomegaly, no splenomegaly, no bruit Extremities: no cyanosis Skin: normal turgor Neurological - other findings: Left neglect. Moves LLE occasionally, spontaneously, but not on command Hosp A/P (1) Acute and chronic respiratory failure with hypoxia Code(s): J96.21 - ACUTE AND CHRONIC RESPIRATORY FAILURE WITH HYPOXIA Status: Acute (2) Acute systolic heart failure Code(s): I50.21 - ACUTE SYSTOLIC (CONGESTIVE) HEART FAILURE Status: Acute (3) Cardiomyopathy Code(s): I42.9 - CARDIOMYOPATHY, UNSPECIFIED Status: Acute (4) DESTINY (acute kidney injury) Code(s): N17.9 - ACUTE KIDNEY FAILURE, UNSPECIFIED Status: Acute (5) Anemia Code(s): D64.9 - ANEMIA, UNSPECIFIED Status: Acute (6) Left-sided neglect Code(s): R41.4 - NEUROLOGIC NEGLECT SYNDROME Status: Acute - Plan Respiratory status vastly improved. Renal function slightly declining with diuresis. Heme/Onc consulted for anemia workup. S/P 2 units. Needs MRI of brain to assess the left neglect. Cards eval for the cardiomyopathy. EF 20-25%
--- NOTE | 2019-07-22 17:13 | MRI ---
MRI brain noncontrast HISTORY: Altered mental status. Left-sided neglect. FINDINGS: A large wedge-shaped area of restricted diffusion in the right frontal lobe extends through the overlying kenney matter. There is a corresponding defect on the ADC mapping image. Loss of signal on the gradient echo suggests some internal necrosis. Surrounding vasogenic edema with effacem ent of the right lateral ventricle and 7 mm leftward shift of the septum pellucidum. At the left occipital lobe, a smaller lobular area of restricted diffusion and ADC mapping defect ext ends through the posterior cortex. Small amount of surrounding vasogenic edema. IMPRESSION: Large acute infarct in the anterior distribution of the right middle cerebral artery, inv olving the right frontal lobe. Mass effect with resultant leftward shift of the septum pellucidum. No hydrocephalus. Smaller acute infarct of the left occipital lobe. Findings were called to Dr. Werner at 1706 hours. Code CR.
[2019-07-22] MEDS: hydrALAZINE 20 MG/ML VIAL SLOW IVP SCH (18:12)
--- NOTE | 2019-07-22 18:36 | CON ---
DATE OF CONSULTATION: REASON FOR CONSULT: Anemia. HISTORY OF PRESENT ILLNESS: Ms. Millard is a 64-year-old female patient of Dr. Schmitz at [facility], who presented to the emergency room with cough, shortness of breath for the last 2 to 3 days. While in the ER, she required intubation and sedation. Her CT scan showed bilateral pleural effusion and possible pneumonia. She was admitted to the ICU, diuresed, and now has been extubated. On admission , her hemoglobin was 8.1. Over the course of the next few days, it dropped to 6.7. She did receive 2 units of packed RBCs and hemoglobin is back up to 10.7 after 2 units. Once extubated, the patient has been having some left-sided neglect, which is currently being worked up. The patient was seen at bedside with granddaughter. Her granddaughter states that the patient's over 6 years ago. Over the past 6 years, she has lost 150 pounds due to malnutrition. The patient apparently ate very little according to her granddaughter. Dr. Schmitz started the patient on oral iron several months ago. Family states that she is intermittently compliant with taking her medications. Granddaughter denies any history of kidney disease. PAST MEDICAL HISTORY: 1. Type 2 diabetes mellitus. 2. Dyslipidemia. 3. Hypertension. 4. Anemia. 5. Hypothyroidism. PAST SURGICAL HISTORY: . ALLERGIES: NO KNOWN DRUG ALLERGIES. HOME MEDICATIONS: 1. Norvasc. 2. Gabapentin. 3. Iron. 4. Levothyroxine. 5. Prinivil. 6. Insulin. FAMILY HISTORY: Her grandmother had ovarian cancer. SOCIAL HISTORY: , lives with her children. No alcohol, tobacco, or illicit drug use. REVIEW OF SYSTEMS: Unable to obtain secondary to altered mental status. PHYSICAL EXAMINATION: VITAL SIGNS: Temperature is 99.7, pulse is 104, respiratory rate 19, blood pressure is 141/77, she is 100% on room air. GENERAL: Well-developed, well-nourished female, in no acute distress. HEENT: Normocephalic, atraumatic. She has a right upward gaze. NECK: Supple. CARDIOVASCULAR: Regular rate and rhythm. LUNGS: Clear. ABDOMEN: Soft and nontender. Bowel sounds are positive. EXTREMITIES: No clubbing, cyanosis, or edema. SKIN: No rash. HEMATOLOGIC: No petechiae or purpura. NEUROLOGIC: The patient does respond to questions, but has left hemiparesis. PERTINENT LABS AND X-RAYS: Current WBCs are 14.9, hemoglobin 10.4, hematocrit 30.2, platelet count 231,000, 91% neutrophils, and 4% lymphocytes, retic count is 3.6. Peripheral smear showed normocytic anemia. Sodium is 130, potassium 4.7, chloride 100, CO2 is 16, BUN is 45, creatinine 3.14, blood sugar is 180, calcium 8.4, phosphorus 5.8, magnesium 2.1, bilirubin is 0.2, AST is 81, ALT 61, alkaline phosphatase is 177. Troponin is 1.081. BNP is 2149. Serum total protein 7, albumin 3.5, globulin 3.5. Urine has 2+ bacteria. Echo showed EF of 15% to 20% . ASSESSMENT: 1. Normocytic normochromic anemia. 2. Heart failure. 3. Acute respiratory failure. 4. Left hemiparesis. 5. Alopecia. DISCUSSION: The patient is currently being worked up for her left hemiparesis. She is due for brain MRI today. Family states the patient has very poor nutrition. We will check nutritional studies including B12 and folate as well as iron studies, although she has been taking iron apparently over the last 3 to 4 months for iron deficiency anemia diagnosed from her primary care. There is no evidence of bleeding. She likely has CKD which is certainly contributing to her anemia. She had 2 units of packed RBC and her hemoglobin went from 6.7 to 10.7. The low hgb likely was delusional since she responded so dramatically with transfusion. She is also currently being worked up for her heart failure. We will follow up on her labs and make further recommendations at that time. However, this is most likely anemia of chronic disease. Bone marrow biopsy not needed at the time. Thank you for the consult. Job ID[facility] [id number] [facility]
--- NOTE | 2019-07-22 19:50 | RAD ---
ABDOMEN ONE VIEW: 07/22/19 HISTORY: Dobhoff feeding tube placement. FINDINGS: Metallic tip of a Dobhoff feeding catheter is over the expected location of the gastric antrum, direc ramos towards the pylorus. The tubing is coiled redundantly over the gastric body and fundus. The visua lized bowel gas patter is nonspecific. Left femoral catheter partially visualized. IMPRESSION: Dobhoff feeding tube coiled within the stomach with tip directed toward the pylorus. POS: BST
[2019-07-22] MEDS: cefTRIAXone\\ROCEPHIN 1 GM in Sodium Chloride 0.9% 100 ML IVPB SCH (22:19)
[2019-07-23] MEDS: Azithromycin 500 MG in Sodium Chloride 0.9% 250 ML 250 ML IVPB SCH (01:34)
[2019-07-23] MEDS: hydrALAZINE 20 MG/ML VIAL SLOW IVP SCH ×3 (01:35→17:56)
[2019-07-23] MEDS: HumaLOG 300 UNITS/3 ML VIAL SC PRN ×3 (01:59→20:42)
[2019-07-23 04:40] LABS: #Lymphocytes 0.9 thou/uL (1.20-3.40); %Basophils 0.1 % (0.0-1.0); %Eosinophils 0.1 % (0.0-10.0); %Lymphocytes 6.2 % (21.0-51.0); %Monocytes 7.2 % (0.0-10.0); %Neutrophils 86.5 % (42.0-75.0); Mean Corpuscular HGB CONC 33.6 g/dL (32.0-36.0); Mean Corpuscular Hemoglobin 27.9 pg (27.0-31.0); Mean Platelet Volume 7.4 fL (7.4-10.4); Platelet Count 252 thou/uL (130-400); RBC Distribution Width 14.2 % (11.5-14.5); Red Blood Cell (RBC) Count 3.58 mill/uL (4.20-5.40); White Blood Cell (WBC) Count 13.8 thou/uL (4.8-10.8)
[2019-07-23 05:02] LABS: Iron 10 ug/dL (50-170); Iron Binding Capacity, Total 194 mcg/dL (265-497)
[2019-07-23 05:03] LABS: Anion Gap 15 mmol/L (10-20); BUN (Urea Nitrogen) 45 mg/dL (9.8-20.1); Calc. Creatinine Clearance 17 mL/min (70-130); Calcium 8.3 mg/dL (7.8-10.44); Carbon Dioxide 18 mmol/L (23-31); Chloride 106 mmol/L (98-107); Estimated GFR-MDRD 16; Glucose 149 mg/dL (80-115); Iron 10 ug/dL (50-170); Iron Binding Capacity, Total 196 mcg/dL (265-497); Potassium 4.2 mmol/L (3.5-5.1); Sodium 135 mmol/L (136-145)
[2019-07-23 05:29] LABS: Vitamin B12 Greater than 2000 pg/mL (211-911)
[2019-07-23] MEDS ORDERED: Furosemide 40 MG/4 ML VIAL SLOW IVP SCH (06:00)
--- NOTE | 2019-07-23 08:50 | RAD ---
Abdomen one view HISTORY: Dobbhoff tube reposition. COMPARISON: 07/22/2019. FINDINGS: Visualized bowel gas pattern is nonspecific. Metallic tip of the Dobbhoff feeding catheter now overlies the right upper quadrant. Expected location of the second portion duodenum. Redundancy of the tube within the stomach has been removed. Left femoral catheter partially visualized. IMPRESSION: Metallic tip of the Dobbhoff feeding catheter now overlies the second portion of the duod enum.
[2019-07-23] MEDS: Enoxaparin Sodium 30 MG/0.3 ML SYRINGE SC SCH (09:21)
[2019-07-23] MEDS: Nitroglycerin 0.4mg/Hour PATCH TD SCH (10:21)
--- NOTE | 2019-07-23 10:22 | CON ---
DATE OF CONSULTATION: 07/23/2019 CONSULTING PHYSICIAN: Hospitalist Service. IMPRESSION: 1. Bilateral infarcts resulting in left hemiparesis and dysphagia probably secondary to a cardioembolic event. 2. Congestive heart failure with ejection fraction of 20% to 25%. PLAN: 1. Full-dose Lovenox until PEG tube is placed. 2. Long-term anticoagulation. HISTORY OF PRESENT ILLNESS: Ms. Millard is a 64-year-old female, who presented to the hospital a few days ago with complaints of shortness of breath. She was subsequently found to have evidence of congestive heart failure. She was transiently intubated, but subsequently moved from the unit. At some point in time, she developed left-sided weakness. She had a MRI done, which showed evidence of an acute infarct involving the right MCA territory as well as a left occipital lobe. She has been nonverbal since extubation. PAST HISTORY: Diabetes. ALLERGIES: NONE. SOCIAL HISTORY: Unremarkable. FAMILY HISTORY: Noncontributory. REVIEW OF SYSTEMS: Not obtainable due to her nonverbal state. PHYSICAL EXAMINATION: VITAL SIGNS: Blood pressure 144/72, pulse 107, respirations 18, and temperature 98.3. HEENT: Pupils are equal. Conjunctivae are clear. She has a right gaze preference. Oropharynx clear. Cranium; normocephalic and atraumatic. NECK: Supple. No lymphadenopathy. EXTREMITIES: No cyanosis or edema. NEUROLOGIC: She was nonverbal. Could not get her to follow any commands. She appeared to be awake. She has a left facial droop. She has a dense left upper extremity paralysis. She has antigravity strength in the left leg. She responds to stimulation on the left side. She has an upgoing toe on the left. Gait was not tested. No abnormal movements were seen. SUMMARY: This is a 64-year-old woman with a very poor ejection fraction secondary to congestive heart failure and she has bilateral infarcts suggesting the possibility of a cardioembolic event. I would suggest long-term anticoagulation. Her dysphagia may require PEG tube placement. Job ID: [id number]
[2019-07-23] MEDS: DOBUTamine 500 mg/250 ml 500 MG in Premix Bag 1 BAG IVPB SCH (10:26)
--- NOTE | 2019-07-23 11:27 | PRG ---
DATE OF SERVICE: SUBJECTIVE: Ms. Millard is a 64-year-old white female, who was initially admitted for congestive heart failure. She was noted to have an EF of 20% to 25%. She subsequently was diuresed. However, renal function worsen with aggressive diuresis. Adjustment of the Lasix has been done. Renal function is slowly improving. In addition, during this recent hospitalization, the patient developed an acute CVA-bilateral infarcts resulting in left hemiparesis and dysphagia. The suspicion by Neurology as this may be cardioembolic phenomenon. This morning, no acute events noted. OBJECTIVE: VITAL SIGNS: Blood pressure 144/72, heart rate 107, respiratory rate 18, temperature 98.3, pulse ox 93%. GENERAL: The patient spontaneous eye opening, but not following verbal commands, comfortable, not in distress. SKIN: Adequate turgor. HEENT: Pinkish conjunctivae. Anicteric sclerae. No neck mass. No carotid bruits. No JVD. CHEST: No deformities. LUNGS: Decreased breath sounds. HEART: Normal sinus rhythm. No murmurs, gallops, or rubs. ABDOMEN: Globular, soft, nontender. No masses. EXTREMITIES: No edema. NEUROLOGICAL: The patient has right gaze noted. Decreased motor. No tremors. No asterixis. Not following commands. MEDICATIONS: Medications of July 23, 2019, was reviewed. LABORATORY DATA: Laboratories of July 23, 2019, white count 13.8, hemoglobin 10. Sodium 135, potassium 4.2, chloride 106, carbon dioxide 18, BUN 45, creatinine 2.9, glucose 149, iron 10. Vitamin B12 greater than 2000, folate 8.6. Further review of her serum creatinine shows the following, July 22, 2019, creatinine was 3.14. ASSESSMENT AND PLAN: 1. Acute kidney injury-consider hemodynamically-mediated renal dysfunction. Urine sediment did not suggest any evidence for acute tubular necrosis. Continue to adjust diuretics as needed. She is on decreased dose of Lasix at the present time. No indication for any dialytic intervention. Continue current management. We will recheck basic metabolic panel and CBC in a.m. Job ID: [id number]
--- NOTE | 2019-07-23 13:11 | ULT ---
BILATERAL RENAL ULTRASOUND: HISTORY: Renal failure. FINDINGS: Exam is limited due to a large amount of bowel gas. The right kidney measures 10 cm in length and the left kidney measures 7.6 cm in length. No hydroneph rosis, shadowing calculus or definite mass is seen. The urinary bladder volume is 341 mL. A Fan cat heter is present. IMPRESSION: No evidence of high grade obstruction. POS: SAE
[2019-07-23] MEDS: Spironolactone 25 MG TAB PO SCH (13:29)
[2019-07-23] MEDS: Aspirin Chewable 81 MG TAB PER TUBE SCH (13:29)
[2019-07-23] MEDS: Acetaminophen 325 MG TAB PO PRN (13:29)
--- NOTE | 2019-07-23 16:39 | PRG ---
DATE OF SERVICE: 07/23/2019 SERVICE: Pulmonary medicine. INTERVAL HISTORY: The patient is doing poorly from a neurologic standpoint. Respiratory hernandez, things are quite good. She cannot provide much in the way of history. She has been able to interact with her family a little bit more today and I find her touch more alert than she was previously. She continues to have a dense left-sided neglect. As such, neurologic exam proves challenging. PHYSICAL EXAMINATION: VITAL SIGNS: Afebrile, pulse 98, blood pressure 105/55, respirations 17, saturation 95% on room air. GENERAL: The patient is awake and alert, in no apparent distress. LUNGS: Decent air entry. No prolonged expiratory phase. Thankfully, I do not appreciate any rhonchi today. HEART: Normal rate and regular. ABDOMEN: Soft, nontender, nondistended. Bowel sounds are positive. MUSCULOSKELETAL: No cyanosis or clubbing. There is no pitting in the bilateral lower extremities. NEUROLOGIC: Dense left-sided neglect is present. LABORATORY DATA: WBC 13.8, hemoglobin 10.0, and platelets 252. Sodium 135 and improving, creatinine 2.90, BUN 45 and stable. Iron is 10 and TIBC level is quite low. Percent saturation is also extremely low. Ferritin falls at the upper limits of normal however. Vitamin B12 and folate are normal. JORGE is unremarkable. Blood cultures x2, urine culture negative. IMAGING DATA: 1. Ultrasound of the kidneys demonstrates no evidence of high-grade obstruction. Left kidney demonstrates medical renal disease. No hydronephrosis is present. She has significant urine in the bladder despite the fact the Fan catheter is in place. 2. MRI of the brain demonstrates a large right-sided stroke, and left occipital lesion, likely proximate source is embolic from aorta or heart. ASSESSMENT: 1. Acute hypoxic respiratory failure, resolved. 2. Acute systolic heart failure with 20% ejection fraction. 3. CVA, likely embolic. 4. Anemia, normocytic with iron deficiency. 5. Hyponatremia, improving. 6. Chronic kidney disease. DISCUSSION AND PLAN: At this point, she has no further requirements for inpatient Pulmonary or Critical Care opinion. She will require full-dose anticoagulation through time. We will watch for neurologic deterioration as the size of the stroke makes it more likely that she could suffer a bleeding event. Antibiotics including Rocephin and azithromycin will be discontinued after a total duration of 5 days. Should the patient have increasing respiratory difficulties, please notify me. If the family wants to be aggressive moving forward, she will likely require PEG tube placement. Job ID: [id number]
[2019-07-23] MEDS: cefTRIAXone\\ROCEPHIN 1 GM in Sodium Chloride 0.9% 100 ML IVPB SCH (20:42)
[2019-07-23] MEDS: Apixaban 2.5 MG TAB PO SCH (20:42)
--- NOTE | 2019-07-23 21:11 | PDOC.HOSPP ---
- Subjective Subjective: Patient follows commands, but not verbal. - Objective Vital Signs & Weight: Vital Signs (12 hours) Temp Pulse Resp BP Pulse Ox 07/23/19 20:00 99.8 F H 102 H 12 108/55 L 93 L 07/23/19 17:56 100 07/23/19 15:58 100 118/64 07/23/19 15:47 99.2 F 98 17 105/55 L 95 07/23/19 11:49 97.5 F L 105 H 18 122/61 93 L 07/23/19 10:45 98.4 F 98 24 H 118/54 L 94 L 07/23/19 10:18 91 Weight Admit Weight 121 lb Weight 121 lb 11.123 oz Most Recent Monitor Data Heart Rate from ECG 108 NIBP 136/69 NIBP BP-Mean 91 Respiration from ECG 18 SpO2 97 I&O: 07/22/19 07/23/19 07/24/19 06:59 06:59 06:59 Intake Total 838.7 710 60 Output Total 1178 1870 650 Balance -339.3 -1160 -590 Result Diagrams: 07/23/19 04:13 07/23/19 04:13 Additional Labs: Accuchecks 07/23/19 07/23/19 07/23/19 19:58 17:07 10:40 POC Glucose 217 H 211 H 172 H 07/23/19 07/23/19 07/22/19 05:35 02:01 23:25 POC Glucose 135 H 206 H 203 H Hospitalist ROS - Medication Medications: Active Medications Generic Name Dose Route Start Last Admin Trade Name Freq PRN Reason Stop Dose Admin Acetaminophen 650 mg 07/20/19 00:28 07/23/19 13:29 Tylenol PO 650 mg Q4H PRN Administration Headache/Fever/Mild Pain (1-3) Acetaminophen 650 mg 07/20/19 00:28 07/22/19 10:58 Tylenol DC 650 mg Q4H PRN Administration Headache/Fever/Mild Pain (1-3) Apixaban 2.5 mg 07/23/19 21:00 07/23/19 20:42 Eliquis PO 2.5 mg BID SHILO Administration Aspirin 81 mg 07/23/19 09:00 07/23/19 13:29 Aspirin Chewable PER TUBE 81 mg DAILY SHILO Administration Hydralazine HCl 10 mg 07/22/19 17:00 07/23/19 17:56 Apresoline SLOW IVP 10 mg 0100,0900,1700 SHILO Administration Ceftriaxone Sodium 1 gm/ 100 mls @ 200 mls/hr 07/20/19 21:00 07/23/19 20:42 Sodium Chloride IVPB 07/25/19 21:01 100 mls Q24HR SHILO Administration Azithromycin 500 mg/ Sodium 250 mls @ 250 mls/hr 07/21/19 01:00 07/23/19 01: 34 Chloride IVPB 07/25/19 01:01 250 mls Q24HR SHILO Administration Dobutamine HCl/Dextrose 500 mg 250 mls @ 0 mls/hr 07/20/19 13:30 07/23/19 10: 26 / Device IVPB 250 mls INF SHILO Administration Protocol As Directed Insulin Human Lispro 0 units 07/20/19 05:18 07/23/19 20:42 Humalog SC 3 unit .MILD SLIDING SCALE PRN Administration Mild Correctional Scale Nitroglycerin 1 patch 07/22/19 09:00 07/23/19 10:21 Nitro-Dur 0.4mg/Hr Patch TD 1 patch DAILY SHILO Administration Ondansetron HCl 4 mg 07/20/19 00:28 07/23/19 11:31 Zofran Odt PO 4 mg Q6H PRN Administration Nausea/Vomiting Ondansetron HCl 4 mg 07/20/19 00:28 07/22/19 10:58 Zofran IVP 4 mg Q6H PRN Administration Nausea/Vomiting Sodium Chloride 10 ml 07/20/19 09:00 07/23/19 09:21 Flush - Normal Saline IVF 10 ml Q12HR SHILO Administration Sodium Chloride 10 ml 07/21/19 08:58 07/23/19 09:22 Flush - Normal Saline IVF 10 ml PRN PRN Administration Saline Flush Spironolactone 25 mg 07/21/19 08:00 07/23/19 13:29 Aldactone PO 25 mg QAM-WM SHILO Administration - Exam General Appearance: NAD, awake alert ENT - other findings: Rightward gaze. Tongue has white plaque but family says it is from a pill. Heart: RRR, no murmur, no gallops, no rubs, normal peripheral pulses Respiratory: CTAB, no wheezes, no rales, no ronchi, normal chest expansion, no tachypnea, normal percussion Gastrointestinal: soft, non-tender, non-distended, normal bowel sounds, no palpable masses, no hepatomegaly, no splenomegaly, no bruit Extremities: no cyanosis, no clubbing, no edema Skin: normal turgor Musculoskeletal - other findings: Left sided weakness. Has some slightly movement on left. Psychiatric - other findings: Does not track with eyes. Will nod and follow commands. Hosp A/P (1) Acute and chronic respiratory failure with hypoxia Code(s): J96.21 - ACUTE AND CHRONIC RESPIRATORY FAILURE WITH HYPOXIA Status: Acute (2) Acute systolic heart failure Code(s): I50.21 - ACUTE SYSTOLIC (CONGESTIVE) HEART FAILURE Status: Acute (3) Cardiomyopathy Code(s): I42.9 - CARDIOMYOPATHY, UNSPECIFIED Status: Acute (4) DESTINY (acute kidney injury) Code(s): N17.9 - ACUTE KIDNEY FAILURE, UNSPECIFIED Status: Acute (5) Anemia Code(s): D64.9 - ANEMIA, UNSPECIFIED Status: Acute (6) Left-sided neglect Code(s): R41.4 - NEUROLOGIC NEGLECT SYNDROME Status: Acute (7) Cerebrovascular accident, embolic Code(s): I63.9 - CEREBRAL INFARCTION, UNSPECIFIED Status: Acute - Plan Respiratory status vastly improved. Renal function slightly declining with diuresis. Heme/Onc consulted for anemia workup. Severe iron deficiency S/P 2 units. MRI confirmed large CVA Cards eval for the cardiomyopathy. EF 20-25% Needs anticoagulation. CVA likely embolic from cardiomyopathy. PT/OT/ST DHT in place. Will likely need PEG.
--- NOTE | 2019-07-23 23:40 | EKG ---
Test Reason : Blood Pressure : / mmHG Vent. Rate : 079 BPM Atrial Rate : 079 BPM P-R Int : 136 ms QRS Dur : 090 ms QT Int : 418 ms P-R-T Axes : 016 020 188 degrees QTc Int : 479 ms Normal sinus rhythm Anterior infarct , age undetermined Abnormal ECG Confirmed by JASON VILLEDA DO ([id number]), senior technical editor LINDSEY NIELSEN ([id number]) on 07/23/2019 11:39:37 PM Referred By: Confirmed By:JASON VILLEDA DO
[2019-07-24] MEDS: hydrALAZINE 20 MG/ML VIAL SLOW IVP SCH ×3 (00:27→18:14)
[2019-07-24] MEDS: Azithromycin 500 MG in Sodium Chloride 0.9% 250 ML 250 ML IVPB SCH (00:28)
[2019-07-24] MEDS: Acetaminophen 325 MG TAB PO PRN (00:28)
--- NOTE | 2019-07-24 02:34 | EKG ---
Test Reason : Blood Pressure : / mmHG Vent. Rate : 092 BPM Atrial Rate : 092 BPM P-R Int : 138 ms QRS Dur : 092 ms QT Int : 366 ms P-R-T Axes : 020 045 251 degrees QTc Int : 452 ms Normal sinus rhythm Anterior infarct , age undetermined Abnormal ECG Confirmed by ABDIRIZAK NORIEGA, RAFAEL Morales ([id number]), loan expeditor LINDSEY NIELSEN ([id number]) on 07/24/2019 2:34:02 AM Referred By: Confirmed By:RAFAEL REVELES MD
[2019-07-24] MEDS ORDERED: Ibuprofen 100 MG/5 ML UDCUP PER TUBE SCH (04:00)
[2019-07-24 04:38] LABS: Anion Gap 12 mmol/L (10-20); BUN (Urea Nitrogen) 50 mg/dL (9.8-20.1); Calc. Creatinine Clearance 18 mL/min (70-130); Calcium 8.2 mg/dL (7.8-10.44); Carbon Dioxide 20 mmol/L (23-31); Chloride 108 mmol/L (98-107); Estimated GFR-MDRD 17; Glucose 250 mg/dL (80-115); Sodium 136 mmol/L (136-145)
[2019-07-24 04:47] LABS: #Lymphocytes 0.9 thou/uL (1.20-3.40); #Monocytes 0.9 thou/uL (0.11-0.59); #Neutrophils 10.8 thou/uL (1.40-6.50); %Basophils 0.2 % (0.0-1.0); %Eosinophils 0.2 % (0.0-10.0); %Lymphocytes 7.5 % (21.0-51.0); %Monocytes 6.9 % (0.0-10.0); %Neutrophils 85.2 % (42.0-75.0); Hemoglobin 10.1 g/dL (12.0-16.0); Mean Corpuscular Hemoglobin 29.1 pg (27.0-31.0); Mean Corpuscular Volume 85.6 fL (78.0-98.0); Mean Platelet Volume 7.3 fL (7.4-10.4); Platelet Count 263 thou/uL (130-400); RBC Distribution Width 14.4 % (11.5-14.5); Red Blood Cell (RBC) Count 3.48 mill/uL (4.20-5.40); White Blood Cell (WBC) Count 12.6 thou/uL (4.8-10.8)
[2019-07-24] MEDS: HumaLOG 300 UNITS/3 ML VIAL SC PRN ×3 (06:43→19:12)
[2019-07-24] MEDS: Apixaban 2.5 MG TAB PO SCH ×2 (10:28→21:24)
[2019-07-24] MEDS: Aspirin Chewable 81 MG TAB PER TUBE SCH (10:28)
--- NOTE | 2019-07-24 10:32 | PRG ---
DATE OF SERVICE: 07/24/2019 SUBJECTIVE: Ms. Millard is a 64-year-old female, who came in with acute respiratory failure, developed a CVA during this hospitalization, however, now following up for acute kidney injury. Initially, I felt that renal dysfunction may simply be hemodynamically mediated renal dysfunction. Adjustment of diuretics has been done. Serum creatinine today is only minimally improved. My plan is to discontinue on spironolactone. She will continue the once-a-day dosing of furosemide for the moment. No acute events noted last night. OBJECTIVE: VITAL SIGNS: Blood pressure is 133/64, heart rate 95, respiratory rate 22, temperature 97.5, pulse ox 94%. GENERAL: Noted to be awake and follow simple commands. SKIN: Adequate turgor. HEENT: Pinkish conjunctivae. Anicteric sclerae. No neck mass. No carotid bruits. No JVD. CHEST: No deformities. LUNGS: Decreased breath sounds. HEART: Normal sinus rhythm. No murmur. No gallops or rubs. ABDOMEN: Globular, soft, nontender. No masses. EXTREMITIES: No edema. No deformities. MEDICATIONS: Medications of July 24, 2019, was reviewed. LABORATORY DATA: July 24, 2019, sodium 136, potassium 4, chloride 108, carbon dioxide 20, BUN 50, creatinine 2.77, glucose 250, calcium 8.2. White count 12.6, hemoglobin 10.1. ASSESSMENT AND PLAN: 1. Acute kidney injury, consider hemodynamically-mediated renal dysfunction. Continue supportive care. We will discontinue spironolactone. Continue current once-a-day dosing of the Lasix. Adjust as needed. 2. Status post cerebrovascular accident, supportive care. Suspicion by Neurology, this is cardioembolic in phenomenon. 3. Recheck basic metabolic and CBC in a.m. Job ID: [id number]
[2019-07-24] MEDS: Nitroglycerin 0.4mg/Hour PATCH TD SCH (10:33)
[2019-07-24] MEDS: Spironolactone 25 MG TAB PO SCH (10:34)
--- NOTE | 2019-07-24 12:39 | PRG ---
DATE OF SERVICE: 07/24/2019 SUBJECTIVE: The patient is seen and examined at the bedside. She has the feeding tube in her nostril. She is able to comprehend. She follows my commands in [place]. OBJECTIVE: VITAL SIGNS: Blood pressure is 103/58, temperature is 99.3, maximal temperature is 100.9, pulse is 83, respiratory rate is 20, and O2 saturation is 92% on room air. HEENT: Her pupils are responding to light properly. Sclerae are nonicteric. Conjunctivae pinkish. Oral mucosa is slightly dry. LUNGS: Clear. HEART: S1 and S2 normal. No S3. No S4. ABDOMEN: Soft, nontender. EXTREMITIES: No clubbing, cyanosis, or edema. NEUROLOGICAL: She follows my commands. She has complete flaccid paralysis of the left upper extremity, and there is some residual function of the left lower extremity, and the right side upper and lower is normal. LABORATORY DATA: White count 12.6, hemoglobin 10.1, hematocrit 29.8, platelet count 263,000. Sodium 136, potassium 4.0, chloride 108, CO2 of 20, BUN 50, creatinine 2.77. Glycemia is ranging from 172 to 310. Microbiology; blood cultures negative. Urine culture negative. IMPRESSION: 1. Acute on chronic respiratory failure with hypoxia. 2. Acute systolic heart failure, left ventricular ejection fraction estimated at 20%. 3. Cardiomyopathy. 4. Acute kidney injury, followed by collar cutter. 5. Anemia. 6. Cerebrovascular accident, acute, most likely embolic. PLAN: We will continue her tube feeding. We will continue her anticoagulation with apixaban and aspirin. We will continue both antibiotics, azithromycin and ceftriaxone. The family is going to make decision about the code status and PEG tube placement. She is still going to be evaluated by a Speech therapist later today on her swallowing, and we will remove the central line and send the tip of the line for culture since the patient started having some fever in the last few days and it is not clear what is causing that, this could be line-related. We will continue PT and OT. Job ID: [id number]
[2019-07-24] MEDS: Carvedilol 3.125 MG TAB PO SCH (18:14)
--- NOTE | 2019-07-24 19:22 | RAD ---
Exam: Chest one view: HISTORY: Increasing shortness of breath COMPARISON: 07/19/2019 FINDINGS: Enteric tube remains in place. The endotracheal tube is been removed. Bilateral alveolar and intersti tial diffuse opacity changes with bilateral pleural effusions evidence for pulmonary edema, these parenchymal changes appear slightly improved. IMPRESSION: Persistent bilateral interstitial and alveolar opacity changes and bilateral pleural effusions concer glen for pulmonary edema, possibly slightly improved. Continued short-term follow-up.
[2019-07-24] MEDS: cefTRIAXone\\ROCEPHIN 1 GM in Sodium Chloride 0.9% 100 ML IVPB SCH (21:24)
[2019-07-25] MEDS: Azithromycin 500 MG in Sodium Chloride 0.9% 250 ML 250 ML IVPB SCH (00:35)
[2019-07-25] MEDS: HumaLOG 300 UNITS/3 ML VIAL SC PRN ×2 (00:35→07:33)
[2019-07-25] MEDS: hydrALAZINE 20 MG/ML VIAL SLOW IVP SCH (00:36)
[2019-07-25] MEDS: Acetaminophen 325 MG TAB PO PRN (01:11)
[2019-07-25 05:08] LABS: #Eosinphils 0.1 thou/uL (0.0-0.7); #Lymphocytes 0.9 thou/uL (1.20-3.40); #Monocytes 0.7 thou/uL (0.11-0.59); #Neutrophils 8.4 thou/uL (1.40-6.50); %Basophils 0.3 % (0.0-1.0); %Eosinophils 0.9 % (0.0-10.0); %Lymphocytes 8.6 % (21.0-51.0); %Monocytes 7.2 % (0.0-10.0); %Neutrophils 83.1 % (42.0-75.0); Hemoglobin 9.6 g/dL (12.0-16.0); Mean Corpuscular HGB CONC 32.7 g/dL (32.0-36.0); Mean Corpuscular Hemoglobin 28.1 pg (27.0-31.0); Mean Corpuscular Volume 85.9 fL (78.0-98.0); Mean Platelet Volume 7.5 fL (7.4-10.4); Platelet Count 242 thou/uL (130-400); RBC Distribution Width 14.2 % (11.5-14.5); Red Blood Cell (RBC) Count 3.43 mill/uL (4.20-5.40); White Blood Cell (WBC) Count 10.1 thou/uL (4.8-10.8)
[2019-07-25 05:32] LABS: Anion Gap 10 mmol/L (10-20); BUN (Urea Nitrogen) 56 mg/dL (9.8-20.1); Calc. Creatinine Clearance 19 mL/min (70-130); Calcium 7.9 mg/dL (7.8-10.44); Carbon Dioxide 22 mmol/L (23-31); Chloride 110 mmol/L (98-107); Estimated GFR-MDRD 18; Glucose 319 mg/dL (80-115); Sodium 138 mmol/L (136-145)
--- NOTE | 2019-07-25 08:24 | CON ---
DATE OF CONSULTATION: SERVICE: Renal Medicine. HISTORY OF PRESENT ILLNESS: Ms. Millard is a 64-year-old female, who was admitted for persistent chest pain. The patient was seen by Cardiology. She was noted to be in acute respiratory failure from CHF. She has been diuresed. Over the next few days, renal function has worsen. During this hospitalization, the patient underwent a brain MRI-July 22, 2019, and was noted to have a large acute infarct in the anterior distribution of the right middle cerebral artery. We are being consulted for acute kidney injury. REVIEW OF SYSTEMS: Not obtainable since the patient is not following commands. MEDICATIONS: Currently on 1. Azithromycin 500 mg IV q.24 hours. 2. Ceftriaxone 1 g IV q.24 hours. 3. Dobutamine drip. 4. Furosemide (Lasix) at 40 mg IV daily. 5. Humalog sliding scale. 6. Hydralazine 10 mg IV p.r.n. 7. Spironolactone 25 mg q.a.m. PAST MEDICAL HISTORY: 1. Recent diagnosis of CHF. 2. Type 2 diabetes mellitus. 3. Hyperlipidemia. 4. Hypertension. 5. History of hypothyroidism. PAST SURGICAL HISTORY: Status post section. SOCIAL HISTORY: The patient lives in [place] currently. No alcohol. No drugs or smoking history. Sedentary lifestyle. ALLERGIES: NO KNOWN DRUG ALLERGIES. TRAUMA: None. IMMUNIZATION: Unknown. HOSPITALIZATIONS: Please see past medical history. FAMILY HISTORY: No family history of ESRD. PHYSICAL EXAMINATION: VITAL SIGNS: Blood pressure 141/80, heart rate 107, respiratory rate 21, pulse ox 99%. GENERAL: Noted to be awake, but not following commands. SKIN: Adequate turgor. HEENT: She has a pinkish conjunctivae. Anicteric sclerae. NECK: No neck mass. No carotid bruits. No JVD. CHEST: No deformities. LUNGS: Decreased breath sounds. HEART: Normal sinus rhythm. No murmur. No gallops. No rubs. ABDOMEN: Globular, soft, nontender, no masses. EXTREMITIES: No edema. No deformities. NEUROLOGICAL: The patient has a left-sided weakness, not following commands. Spontaneous eye opening. No tremors. No asterixis. LABORATORY DATA: Laboratories of July 22, 2019; sodium 130, potassium 4.7, chloride 100, carbon dioxide 16, BUN 45, creatinine 3.14, calcium 8.4. On July 21, 2019; BUN 38, creatinine 2.73. July 20, 2019; BUN 35, creatinine 1.98. On July 19, 2019; BUN 36, creatinine 2.16. On June 16, 2015; BUN 12, creatinine 0.82. MRI of the brain shows large acute infarct in the anterior distribution of the right middle cerebral artery involving the right frontal lobe mass effect with leftward shift of the septum pellucidum noted. On July 19, 2019, chest x-ray shows the patient to be intubated. She has multiple opacities suggestive of CHF versus pneumonia. On July 20, 2019, cardiac echo showed an EF of about 20%. ASSESSMENT AND PLAN: 1. Acute kidney injury. Urinalysis was reviewed-no findings of pigmented granular casts. She may simply have a hemodynamically-mediated renal dysfunction. Please note that her Lasix has been decreased to once a day dosing. I do not see any indication for any emergent hemodialysis at the present time. I would at least consider giving this patient albumin infusion if the renal function will not improve with conservative management. 2. Status post cerebrovascular accident-large acute right-sided infarct, supportive care. 3. Acute respiratory failure/congestive heart failure, stabilizing. The patient is now noted to be extubated. ADDENDUM: Urine chemistries was noted to have high urine sodium, but this could be a reflection of the current diuretic regimen. Continue supportive care. Thank you for the consult. We will continue to follow. Job ID: [id number]
[2019-07-25] MEDS ORDERED: hydrALAZINE 25 MG TAB PO SCH (09:00)
--- NOTE | 2019-07-25 10:02 | PRG ---
DATE OF SERVICE: 07/25/2019 SUBJECTIVE: Ms. Millard is a 64-year-old female, who was initially admitted for congestive heart failure/acute respiratory failure and developed CVA secondary to a cardioembolic phenomenon. She was also noted to have an acute kidney injury. We felt that acute kidney injury most likely was a hemodynamically-mediated renal dysfunction. Adjustment of her diuretic has been made. Currently, renal function is relatively unchanged. Creatinine today is 2.68. Adjustment with her diuretic has already been made. No acute events. The patient can recognize and can follow simple commands. OBJECTIVE: VITAL SIGNS: Blood pressure is 104/54, heart rate 78, respiratory rate 17, temperature 98.4, and pulse ox 93%. GENERAL: She is awake and can follow simple commands, not in distress. SKIN: Adequate turgor. HEENT: She has slightly pale conjunctivae. Anicteric sclerae. NECK: No neck mass. No carotid bruits. No JVD. CHEST: No deformities. LUNGS: Clear breath sounds. HEART: Normal sinus rhythm. No murmur. No gallops. No rubs. ABDOMEN: Globular, soft, nontender. No masses. EXTREMITIES: No edema. NEUROLOGIC: Dysarthric. Decreased motor. MEDICATIONS: Medications of July 25, 2019, were reviewed. LABORATORY DATA: Laboratories of July 25, 2019; sodium 138, potassium 4, chloride 110, carbon dioxide 22, BUN 56, creatinine 2.68, glucose 319, calcium 7.9. On July 25, 2019; white count 10.1, hemoglobin 9.6, hematocrit 29.5. ASSESSMENT AND PLAN: 1. Acute kidney injury - consider hemodynamically-mediated renal dysfunction. Continue current supportive care. We will proceed and start the patient on albumin infusion 25 g IV q.6 to see if I could further improve the renal function. There is no indication for any dialytic intervention. 2. Status post cerebrovascular accident - secondary to cardioembolic phenomenon. Neurology is following. Continue supportive care. We will recheck basic metabolic and CBC in a.m. Job ID: [id number]
[2019-07-25] MEDS: Aspirin Chewable 81 MG TAB PER TUBE SCH (11:09)
[2019-07-25] MEDS: Apixaban 2.5 MG TAB PO SCH ×2 (11:09→21:59)
[2019-07-25] MEDS: Carvedilol 3.125 MG TAB PO SCH ×2 (11:09→16:26)
[2019-07-25] MEDS: Nitroglycerin 0.4mg/Hour PATCH TD SCH (11:10)
[2019-07-25] MEDS: Albumin 25% 25 GM/100 ML BOT IVPB SCH ×3 (11:11→22:40)
[2019-07-25] MEDS ORDERED: Dextrose 50% Abboject 50 ML SYRINGE SLOW IVP PRN (11:16)
[2019-07-25] MEDS ORDERED: Dextrose 5% in Water 1,000 ML IV PRN (11:16)
--- NOTE | 2019-07-25 11:56 | PRG ---
DATE OF SERVICE: 07/25/2019 SUBJECTIVE: The patient is seen and examined at bedside. There is some communication with her. She seems to be comprehending some basics, but she is not very verbal. OBJECTIVE: VITAL SIGNS: Blood pressure is 128/61, pulse is 75, respiratory rate is 17, pulse oximetry is 93% on 1 L of nasal cannula. Her maximal temperature is 100.7. HEENT: Her pupils are responding to light properly. Sclerae are nonicteric. Conjunctivae palish. Oral mucosa is moist. NECK: Supple. LUNGS: Bilateral rales and crackles present at both bases. No wheezing. HEART: S1 and S2, somewhat distant. No S3. No S4. ABDOMEN: Soft, nontender, and nondistended. EXTREMITIES: No clubbing, cyanosis, or edema. NEUROLOGIC: She tries to follow my commands. She has a left upper extremity total paresis and there is some preserved function in the left lower extremity. The right side upper and lower limb within normal limits. LABORATORY DATA: White count of 10.1, hemoglobin 9.6, hematocrit 29.5, platelet count is 242,000. Sodium of 138, potassium 4.0, chloride 110, CO2 of 22, BUN 56, creatinine 2.68, and glycemia is ranging from 276 to 323. Chest x-ray showed bilateral pleural effusions with some pulmonary edema and bilateral infiltrates. IMPRESSION: 1. Acute on chronic respiratory failure with hypoxia. 2. Acute systolic heart failure with LVEF of 20%. 3. Cardiomyopathy. 4. Acute kidney injury. 5. Anemia. 6. Acute cerebrovascular accident, most likely embolic. PLAN: The patient is placed on IV Lasix. We will change her sliding scale to aggressive, and we will start her on insulin Lantus 20 units once a day to get better coverage for her hyperglycemia. The family is still to decide about the PEG tube placement in the near future. We will continue her antibiotics. The speech therapist is still working on her swallowing problems. There is some concern that she might be aspirating. We will continue azithromycin and ceftriaxone, and she will continue her anticoagulation with aspirin and apixaban, and we will continue her PT. Her central line was removed, and the catheter was sent to the microbiology and is not growing anything. Also, her white count is normal. Job ID: [id number]
[2019-07-25] MEDS ORDERED: Insulin Glargine 20 UNITS in Pre-Filled Syringe 1 EACH SC SCH (12:00)
[2019-07-25] MEDS: Furosemide 40 MG/4 ML VIAL SLOW IVP SCH (14:47)
[2019-07-25] MEDS: hydrALAZINE 10 MG TAB PO SCH ×2 (14:48→21:59)
[2019-07-25] MEDS: Insulin Regular 300 UNITS/3 ML VIAL SC PRN (18:35)
[2019-07-25] MEDS: cefTRIAXone\\ROCEPHIN 1 GM in Sodium Chloride 0.9% 100 ML IVPB SCH (21:58)
[2019-07-26] MEDS: Insulin Regular 300 UNITS/3 ML VIAL SC PRN ×4 (01:45→18:34)
[2019-07-26] MEDS: Albumin 25% 25 GM/100 ML BOT IVPB SCH (03:56)
[2019-07-26] MEDS: Acetaminophen 325 MG TAB PO PRN ×3 (04:18→22:46)
[2019-07-26] MEDS: Furosemide 40 MG/4 ML VIAL SLOW IVP SCH ×2 (06:42→15:18)
[2019-07-26 08:37] LABS: Anion Gap 14 mmol/L (10-20); BUN (Urea Nitrogen) 34 mg/dL (9.8-20.1); Calc. Creatinine Clearance 19 mL/min (70-130); Calcium 8.6 mg/dL (7.8-10.44); Carbon Dioxide 20 mmol/L (23-31); Chloride 110 mmol/L (98-107); Estimated GFR-MDRD 19; Glucose 190 mg/dL (80-115); Potassium 3.9 mmol/L (3.5-5.1); Sodium 140 mmol/L (136-145)
--- NOTE | 2019-07-26 09:19 | PRG ---
DATE OF SERVICE: 07/26/2019 SUBJECTIVE: Ms. Millard is a 64-year-old female, who was admitted for CHF, and during this hospitalization, developed CVA secondary to a presumed cardioembolic phenomenon. We are following her up for her acute kidney injury. Renal function has relatively remained stable in the last few days. Adjustment of diuretics has been made. However, due to the volume overload, Lasix was increased b.i.d. by her installer technician. She did receive albumin yesterday. No acute events noted last night. OBJECTIVE: VITAL SIGNS: Blood pressure is 148/75, heart rate is 86, temperature is 100.1, respiratory rate is 22, pulse ox is 92%. GENERAL: The patient is noted to be awake, alert, comfortable, not in distress. SKIN: Adequate turgor. HEENT: Pinkish conjunctivae, anicteric sclerae. NECK: No neck mass. No carotid bruits. No JVD. CHEST: No deformities. LUNGS: Decreased breath sounds. HEART: Normal sinus rhythm. No murmur. No gallops. No rubs. ABDOMEN: Globular, soft, nontender. No masses. EXTREMITIES: No edema. NEUROLOGIC: The patient is dysarthric, can follow simple commands. Decreased motor. MEDICATIONS: Medications of July 26, 2019, reviewed. LABORATORY DATA: Laboratories of July 25, 2019; hemoglobin 9.6. July 25, 2019; BUN 56, creatinine 2.68. Potassium 4. Basic metabolic profile for July 26, pending. ASSESSMENT AND PLAN: 1. Acute kidney injury/chronic renal failure-continue supportive care. Relatively stable renal function. No indication for dialytic intervention. Our plan is to do another basic metabolic profile today and in a.m. Continue supportive care. Continue judicious use of diuretics. 2. Status post cerebrovascular accident secondary to cardioembolic phenomenon, supportive care. Awaiting rehab placement. 3. Congestive heart failure, on diuretics. Job ID: [id number]
[2019-07-26] MEDS: Insulin Glargine 20 UNITS in Pre-Filled Syringe 1 EACH SC SCH (11:30)
[2019-07-26] MEDS: Aspirin Chewable 81 MG TAB PER TUBE SCH (11:31)
[2019-07-26] MEDS: Carvedilol 3.125 MG TAB PO SCH ×2 (11:31→18:34)
[2019-07-26] MEDS: hydrALAZINE 10 MG TAB PO SCH ×3 (11:31→22:38)
[2019-07-26] MEDS: Apixaban 2.5 MG TAB PO SCH ×2 (11:31→22:37)
[2019-07-26] MEDS: Nitroglycerin 0.4mg/Hour PATCH TD SCH (11:31)
--- NOTE | 2019-07-26 12:27 | PDOC.HOSPP ---
- Subjective Encounter Date: 07/26/19 Encounter Time: 11:00 Subjective: Patient seen and examined. No new complaints. No overnight events - Objective Vital Signs & Weight: Vital Signs (12 hours) Temp Pulse Resp BP Pulse Ox 07/26/19 12:09 72 20 07/26/19 11:31 76 07/26/19 08:03 99.0 F 74 20 131/56 L 96 07/26/19 04:00 100.1 F H 86 22 H 148/75 H 92 L 07/26/19 00:59 96 07/26/19 00:48 92 L Weight Admit Weight 121 lb Weight 113 lb 8 oz Most Recent Monitor Data Heart Rate from ECG 108 NIBP 136/69 NIBP BP-Mean 91 Respiration from ECG 18 SpO2 97 I&O: 07/25/19 07/26/19 07/27/19 06:59 06:59 06:59 Intake Total 120 150 840 Output Total 725 550 360 Balance -605 -400 480 Result Diagrams: 07/25/19 04:46 07/26/19 08:11 Additional Labs: Accuchecks 07/26/19 07/26/19 07/25/19 06:02 00:31 16:52 POC Glucose 184 H 251 H 234 H Radiology Reviewed by me: Yes EKG Reviewed by me: Yes Hospitalist ROS - Review of Systems Eyes: denies: pain, vision change, conjunctivae inflammation, eyelid inflammation, redness, other ENT: denies: ear pain, ear discharge, nose pain, nose discharge, nose congestion , mouth pain, mouth swelling, throat pain, throat swelling, other Respiratory: denies: cough, dry, shortness of breath, hemoptysis, SOB with excertion, pleuritic pain, sputum, wheezing, other Cardiovascular: denies: chest pain, palpitations, orthopnea, paroxysmal noc. dyspnea, edema, light headedness, other Gastrointestinal: denies: nausea, vomiting, abdominal pain, diarrhea, constipation, melena, hematochezia, other Genitourinary: denies: dysuria, frequency, incontinence, hematuria, retention, other Musculoskeletal: denies: neck pain, shoulder pain, arm pain, back pain, hand pain, leg pain, foot pain, other - Medication Medications: Active Medications Generic Name Dose Route Start Last Admin Trade Name Freq PRN Reason Stop Dose Admin Acetaminophen 650 mg 07/20/19 00:28 07/26/19 11:44 Tylenol PO 650 mg Q4H PRN Administration Headache/Fever/Mild Pain (1-3) Acetaminophen 650 mg 07/20/19 00:28 07/22/19 10:58 Tylenol PA 650 mg Q4H PRN Administration Headache/Fever/Mild Pain (1-3) Albuterol/Ipratropium 3 ml 07/24/19 18:58 07/26/19 12:09 Duoneb NEB 3 ml Q4H PRN Administration SOB &/or Wheezing Apixaban 2.5 mg 07/23/19 21:00 07/26/19 11:31 Eliquis PO 2.5 mg BID SHILO Administration Aspirin 81 mg 07/23/19 09:00 07/26/19 11:31 Aspirin Chewable PER TUBE 81 mg DAILY SHILO Administration Carvedilol 3.125 mg 07/24/19 17:00 07/26/19 11:31 Coreg PO 3.125 mg BID-WM SHILO Administration Furosemide 40 mg 07/25/19 14:00 07/26/19 06:42 Lasix SLOW IVP 40 mg 0600,1400 SHILO Administration Hydralazine HCl 10 mg 07/25/19 15:00 07/26/19 11:31 Apresoline PO 10 mg TID SHILO Administration Insulin Glargine 20 units/ 0.2 mls @ 0 mls/hr 07/26/19 09:00 07/26/19 11:30 Miscellaneous Medication SC 0.2 mls QAM SHILO Administration Insulin Human Regular 0 units 07/25/19 11:16 07/26/19 06:42 Humulin R SC 3 unit .AGGRESSIVE SLIDING PRN Administration Aggressive Correctional Scale Nitroglycerin 1 patch 07/22/19 09:00 07/26/19 11:31 Nitro-Dur 0.4mg/Hr Patch TD 1 patch DAILY SHILO Administration Ondansetron HCl 4 mg 07/20/19 00:28 07/23/19 11:31 Zofran Odt PO 4 mg Q6H PRN Administration Nausea/Vomiting Ondansetron HCl 4 mg 07/20/19 00:28 07/22/19 10:58 Zofran IVP 4 mg Q6H PRN Administration Nausea/Vomiting Sodium Chloride 10 ml 07/20/19 09:00 07/26/19 11:32 Flush - Normal Saline IVF 10 ml Q12HR SHILO Administration Sodium Chloride 10 ml 07/21/19 08:58 07/23/19 09:22 Flush - Normal Saline IVF 10 ml PRN PRN Administration Saline Flush - Exam General Appearance: NAD, awake alert Eye: PERRL, anicteric sclera ENT: normocephalic atraumatic, no oropharyngeal lesions Neck: supple, symmetric, no JVD, no thyromegaly Neck - other findings: dubhuff tube in place Heart: no murmur, no gallops Respiratory: CTAB, no wheezes, no rales Gastrointestinal: soft, non-tender, non-distended, normal bowel sounds Extremities: no cyanosis, no clubbing Skin: normal turgor, no lesions Neurological - other findings: left side weakness Musculoskeletal: normal tone Psychiatric: normal affect Hosp A/P (1) Cerebrovascular accident, embolic Code(s): I63.9 - CEREBRAL INFARCTION, UNSPECIFIED Status: Acute (2) Left-sided neglect Code(s): R41.4 - NEUROLOGIC NEGLECT SYNDROME Status: Acute (3) Cardiomyopathy Code(s): I42.9 - CARDIOMYOPATHY, UNSPECIFIED Status: Acute (4) Acute systolic heart failure Code(s): I50.21 - ACUTE SYSTOLIC (CONGESTIVE) HEART FAILURE Status: Acute (5) Acute and chronic respiratory failure with hypoxia Code(s): J96.21 - ACUTE AND CHRONIC RESPIRATORY FAILURE WITH HYPOXIA Status: Acute (6) DESTINY (acute kidney injury) Code(s): N17.9 - ACUTE KIDNEY FAILURE, UNSPECIFIED Status: Acute (7) Anemia Code(s): D64.9 - ANEMIA, UNSPECIFIED Status: Chronic - Plan old records reviewed/req, plan discussed w/ family, espinosa catheter, PT/OT, social media director, speech therapy medication reviewed as above symptomatic treatment pt will need PEG tube placement if family and pt agree continue iv lasix currently on medical management will need eventual placement
--- NOTE | 2019-07-26 14:28 | RAD ---
PORTABLE CHEST 1 VIEW: Date: 07/26/19 Time: 1358 hours HISTORY: Dyspnea. FINDINGS/IMPRESSION: Correlation made with exam of 07/24/19. Feeding tube is again seen. The heart size is stable. There is perihilar edema. No pneumothoraces or large effusions are seen. POS: TPC
[2019-07-26] MEDS: Atorvastatin Calcium 40 MG TAB PO SCH (22:38)
[2019-07-27 05:02] LABS: #Eosinphils 0.2 thou/uL (0.0-0.7); #Lymphocytes 1.1 thou/uL (1.20-3.40); #Monocytes 0.6 thou/uL (0.11-0.59); %Basophils 0.4 % (0.0-1.0); %Lymphocytes 10.1 % (21.0-51.0); %Neutrophils 82.5 % (42.0-75.0); Hemoglobin 9.4 g/dL (12.0-16.0); Mean Corpuscular HGB CONC 32.4 g/dL (32.0-36.0); Mean Corpuscular Hemoglobin 28.5 pg (27.0-31.0); Mean Corpuscular Volume 87.9 fL (78.0-98.0); Mean Platelet Volume 8.1 fL (7.4-10.4); Platelet Count 216 thou/uL (130-400); RBC Distribution Width 13.8 % (11.5-14.5); Red Blood Cell (RBC) Count 3.29 mill/uL (4.20-5.40); White Blood Cell (WBC) Count 10.9 thou/uL (4.8-10.8)
[2019-07-27 05:26] LABS: Anion Gap 12 mmol/L (10-20); BUN (Urea Nitrogen) 65 mg/dL (9.8-20.1); Calc. Creatinine Clearance 18 mL/min (70-130); Calcium 8.4 mg/dL (7.8-10.44); Carbon Dioxide 23 mmol/L (23-31); Chloride 108 mmol/L (98-107); Estimated GFR-MDRD 19; Glucose 169 mg/dL (80-115); Potassium 3.8 mmol/L (3.5-5.1); Sodium 139 mmol/L (136-145)
[2019-07-27] MEDS: Insulin Regular 300 UNITS/3 ML VIAL SC PRN ×3 (06:05→17:45)
[2019-07-27] MEDS: Furosemide 40 MG/4 ML VIAL SLOW IVP SCH ×2 (06:05→14:45)
--- NOTE | 2019-07-27 09:49 | PRG ---
DATE OF SERVICE: 07/27/2019 SUBJECTIVE: Ms. Millard is a 64-year-old female, who was admitted for congestive heart failure and developed CVA secondary to cardioembolic phenomenon. We are following her up for her acute kidney injury/chronic renal failure. No acute events noted last night. Awaiting rehab placement. OBJECTIVE: VITAL SIGNS: Blood pressure 114/59, heart rate 68, respiratory rate 20, temperature 98.4, and pulse ox 96%. GENERAL: Awake, can follow simple commands, not in overt distress. SKIN: Adequate turgor. HEENT: She has pinkish conjunctivae. Anicteric sclerae. NECK: No neck mass. No carotid bruits. No JVD. CHEST: No deformities. LUNGS: Decreased breath sounds. HEART: Normal sinus rhythm. No murmur. No gallops. No rubs. ABDOMEN: Globular, soft, nontender. No masses. EXTREMITIES: No edema. No deformities. NEUROLOGIC: The patient has a trach, following simple commands. Decreased bilateral motor. MEDICATIONS: Medications of July 27, 2019, reviewed. LABORATORY DATA: Laboratories of July 27, 2019; white count 10.9, hemoglobin 9.4. Sodium 139, potassium 3.8, chloride 108, carbon dioxide 23, BUN 65, creatinine 2.6, calcium 8.4. GFR 19 mL/minute. ASSESSMENT AND PLAN: 1. Acute kidney injury/chronic renal failure, superimposed prerenal azotemia. No indication for any dialytic intervention. Please note, the patient is on Lasix 40 mg IV q.12. Continue judicious use of diuretics. Adjust as needed depending what the renal function is. 2. Status post CVA - presumptive cardioembolic phenomenon. Supportive care. Awaiting rehab/correction placement. Recheck basic metabolic panel in a.m. Job ID: [id number]
[2019-07-27] MEDS: Insulin Glargine 20 UNITS in Pre-Filled Syringe 1 EACH SC SCH (10:23)
[2019-07-27] MEDS: Carvedilol 3.125 MG TAB PO SCH ×2 (10:23→17:45)
[2019-07-27] MEDS: hydrALAZINE 10 MG TAB PO SCH ×3 (10:24→21:31)
[2019-07-27] MEDS: Aspirin Chewable 81 MG TAB PER TUBE SCH (10:26)
[2019-07-27] MEDS: Apixaban 2.5 MG TAB PO SCH ×2 (10:26→21:31)
[2019-07-27] MEDS: Nitroglycerin 0.4mg/Hour PATCH TD SCH (10:27)
[2019-07-27 13:39] VITALS: BMI 22.1
--- NOTE | 2019-07-27 16:55 | PDOC.HOSPP ---
- Subjective Encounter Date: 07/27/19 Encounter Time: 16:52 Subjective: The patient's only complaint is a headache on the right side of her head. She feels nauseous from it. She denies vision changes. She has NG tube in place. When discussed about PEG tube placement with patient, she states she does not want any surgery, just wants to and be with her in [facility]. SHe states Patient is expressing to her daughter that she wants to and be with her in [facility]. Discussed hospice with daughter, states she will call her sister to discuss further. Palliative care is folllowing - Objective Vital Signs & Weight: Vital Signs (12 hours) Temp Pulse Pulse Resp BP BP BP 07/27/19 16:31 73 07/27/19 15:38 99 F 73 16 119/52 L 07/27/19 14:40 80 14 07/27/19 11:43 98.8 F 67 16 109/49 L 07/27/19 10:30 70 14 07/27/19 10:24 70 07/27/19 08:55 07/27/19 08:40 66 124/61 115/53 L 07/27/19 07:21 70 16 07/27/19 07:08 98.4 F 68 20 114/59 L Pulse Ox 07/27/19 16:31 07/27/19 15:38 93 L 07/27/19 14:40 07/27/19 11:43 93 L 07/27/19 10:30 07/27/19 10:24 07/27/19 08:55 96 07/27/19 08:40 07/27/19 07:21 07/27/19 07:08 96 Weight Admit Weight 121 lb Weight 113 lb 8 oz Most Recent Monitor Data Heart Rate from ECG 108 NIBP 136/69 NIBP BP-Mean 91 Respiration from ECG 18 SpO2 97 I&O: 07/26/19 07/27/19 07/28/19 06:59 06:59 06:59 Intake Total 150 1605 30 Output Total 550 1345 Balance -400 260 30 Result Diagrams: 07/27/19 04:07 07/27/19 04:07 Additional Labs: Accuchecks 07/27/19 07/27/19 07/27/19 12:01 05:50 00:43 POC Glucose 201 H 209 H 143 H 07/26/19 18:03 POC Glucose 251 H Hospitalist ROS - Medication Medications: Active Medications Generic Name Dose Route Start Last Admin Trade Name Freq PRN Reason Stop Dose Admin Acetaminophen 650 mg 07/20/19 00:28 07/26/19 22:46 Tylenol PO 650 mg Q4H PRN Administration Headache/Fever/Mild Pain (1-3) Acetaminophen 650 mg 07/20/19 00:28 07/22/19 10:58 Tylenol LA 650 mg Q4H PRN Administration Headache/Fever/Mild Pain (1-3) Albuterol/Ipratropium 3 ml 07/26/19 14:30 07/27/19 14:40 Duoneb NEB 3 ml [id number] SHILO Administration Apixaban 2.5 mg 07/23/19 21:00 07/27/19 10:26 Eliquis PO 2.5 mg BID SHILO Administration Aspirin 81 mg 07/23/19 09:00 07/27/19 10:26 Aspirin Chewable PER TUBE 81 mg DAILY SHILO Administration Atorvastatin Calcium 40 mg 07/26/19 21:00 07/26/19 22:38 Lipitor PO 40 mg HS SHILO Administration Carvedilol 3.125 mg 07/24/19 17:00 07/27/19 10:23 Coreg PO 3.125 mg BID-WM SHILO Administration Hydralazine HCl 25 mg 07/26/19 15:00 07/27/19 16:31 Apresoline PO 25 mg TID SHILO Administration Insulin Glargine 20 units/ 0.2 mls @ 0 mls/hr 07/26/19 09:00 07/27/19 10:23 Miscellaneous Medication SC 0.2 mls QAM SHILO Administration Insulin Human Regular 0 units 07/25/19 11:16 07/27/19 12:41 Humulin R SC 6 unit .AGGRESSIVE SLIDING PRN Administration Aggressive Correctional Scale Ondansetron HCl 4 mg 07/20/19 00:28 07/23/19 11:31 Zofran Odt PO 4 mg Q6H PRN Administration Nausea/Vomiting Ondansetron HCl 4 mg 07/20/19 00:28 07/22/19 10:58 Zofran IVP 4 mg Q6H PRN Administration Nausea/Vomiting Sodium Chloride 10 ml 07/20/19 09:00 07/27/19 10:26 Flush - Normal Saline IVF 10 ml Q12HR SHILO Administration Sodium Chloride 10 ml 07/21/19 08:58 07/23/19 09:22 Flush - Normal Saline IVF 10 ml PRN PRN Administration Saline Flush - Exam General Appearance: ill appearing General - other findings: drowsy. Patient answers some questions Eye: PERRL, anicteric sclera ENT: normocephalic atraumatic, no oropharyngeal lesions Neck: supple, no JVD Heart: RRR, no murmur, no gallops, no rubs Respiratory: CTAB, no wheezes, no rales, no ronchi Gastrointestinal: soft, non-tender, non-distended Extremities: no cyanosis, no clubbing, no edema Skin: normal turgor, no lesions, no rashes Neurological: cranial nerve grossly intact, normal sensation to touch, no focal deficits, no new deficit Neurological - other findings: Patient has 4/5 strength left arm and left leg, 5 /5 strength right arm+ leg Musculoskeletal: normal tone, normal strength Musculoskeletal - other findings: able to move all extremites Psychiatric: normal affect, normal behavior, A&O x 3, oriented to person, oriented to place, oriented to time Hosp A/P - Plan MRI Brain: large acute infarct in anterior distribution of right MCA, involving right frontal lobe with mass effect with leftward shift, small acute infarct of left occipital lobe This is a 64 year old female who presented with NSTEMI, was admitted to the ICU. Subsequently developed stroke, multi-focal pneumonia, has systolic heart failure and kidney failure, malnutrition on NG tube feeds NSTEMI - ECHO showed EF 25% with small pericardial effusion, moderate MR mild TR - contniue aspirin, atorvastatin 40 mg qhs, coreg 3.125 mg bid, imdur 10 mg po bid Acute CHF - resolving - was getting lasix IV daily, however creatinine slightly increased to 2.60, therefore will d/c for now since patient doesn't look fluid overloaded Type II diabetes - glargine 20 units qam - on apixaban Protein Calorie malnutrition - patient with NG tube, refusing tube feeds - speech therapy following - palliative care consult for hospice Leukocytosis - WBC 10.9, no fever, continue to monitor Anemia of chronic disease with iron deficiency - iron sat extremely low at 5%, may benefit from IV iron, will try one dose Hypertension - on imdur and hydralazine Headache - tylenol prn DESTINY - creatinine increasing from 2.5 to 2.6, will hold lasix for a day - renal ultrasound 07/23 shows no obstruction Disposition: palliative care , possibly hospice consult since patient does not want prolonged care
[2019-07-27] MEDS ORDERED: Iron Sucrose Complex 200 MG in Sodium Chloride 0.9% 250 ML 250 ML IVPB SCH (17:15)
[2019-07-27] MEDS ORDERED: Iron, Sodium Ferric Gluconate 250 MG in Sodium Chloride 0.9% 100 ML IVPB SCH (17:30)
[2019-07-27] MEDS ORDERED: Isosorbide Dinitrate 20 MG TAB PO SCH (21:00)
[2019-07-27] MEDS: Atorvastatin Calcium 40 MG TAB PO SCH (21:31)
[2019-07-27] MEDS: Isosorbide Dinitrate 5 MG TAB PO SCH (21:31)
[2019-07-28] MEDS: Insulin Regular 300 UNITS/3 ML VIAL SC PRN ×3 (01:49→18:31)
[2019-07-28 04:48] LABS: #Eosinphils 0.2 thou/uL (0.0-0.7); #Lymphocytes 1.2 thou/uL (1.20-3.40); #Monocytes 0.6 thou/uL (0.11-0.59); %Basophils 0.3 % (0.0-1.0); %Lymphocytes 9.7 % (21.0-51.0); %Monocytes 5.2 % (0.0-10.0); %Neutrophils 82.8 % (42.0-75.0); Mean Corpuscular HGB CONC 32.1 g/dL (32.0-36.0); Mean Corpuscular Hemoglobin 28.4 pg (27.0-31.0); Mean Corpuscular Volume 88.5 fL (78.0-98.0); Mean Platelet Volume 8.3 fL (7.4-10.4); Platelet Count 248 thou/uL (130-400); RBC Distribution Width 13.9 % (11.5-14.5); Red Blood Cell (RBC) Count 3.51 mill/uL (4.20-5.40)
[2019-07-28 05:10] LABS: Anion Gap 13 mmol/L (10-20); BUN (Urea Nitrogen) 68 mg/dL (9.8-20.1); Calc. Creatinine Clearance 19 mL/min (70-130); Calcium 8.3 mg/dL (7.8-10.44); Carbon Dioxide 22 mmol/L (23-31); Chloride 107 mmol/L (98-107); Estimated GFR-MDRD 19; Glucose 220 mg/dL (80-115); Potassium 3.6 mmol/L (3.5-5.1); Sodium 138 mmol/L (136-145)
[2019-07-28] MEDS ORDERED: Carvedilol 3.125 MG TAB PO SCH (08:36)
[2019-07-28] MEDS ORDERED: Carvedilol 6.25 MG TAB PO SCH (08:45)
--- NOTE | 2019-07-28 10:04 | PRG ---
DATE OF SERVICE: 07/28/2019 SUBJECTIVE: Ms. Millard is a 64-year-old female, who was admitted for CHF and developed CVA secondary to cardioembolic phenomenon. We are following her up for her acute kidney injury/chronic renal failure. The patient is more awake today and can follow commands. OBJECTIVE: VITAL SIGNS: Blood pressure is 151/70, heart rate 72, respiratory rate 16, temperature 99.1, and pulse ox 92%. GENERAL: Noted to be awake, can follow commands. Not in distress. SKIN: Adequate turgor. HEENT: Pinkish conjunctivae. Anicteric sclerae. NECK: No neck mass. No carotid bruits. No JVD. CHEST: No deformities. LUNGS: Clear breath sounds. No wheezing. No crackles. HEART: Normal sinus rhythm. No murmurs, gallops, or rubs. ABDOMEN: Globular, soft, nontender. No masses. EXTREMITIES: No edema. No deformities. NEUROLOGIC: Dysarthric. Decreased motor bilateral. MEDICATIONS: Medications of July 28, 2019, was reviewed. LABORATORY DATA: July 28, 2019; white count 12, hemoglobin 10. Sodium 138, potassium 3.6, chloride 107, carbon dioxide 22, BUN 68, creatinine 2.5, glucose 220, calcium 8.3. Hemoglobin 10, hematocrit 31.1. ASSESSMENT AND PLAN: 1. Acute kidney injury/chronic renal failure, superimposed hemodynamically-mediated renal dysfunction. Stabilizing renal function. Tolerating current diuretic regimen. No indication for any dialytic intervention. 2. Status post cerebrovascular accident secondary to cardioembolic phenomenon - supportive care. Awaiting rehab transfer. 3. Congestive heart failure, clinically improving. Currently, on diuretic regimen. No indication for any dialytic intervention. Recheck basic metabolic profile, CBC in a.m. Job ID: [id number]
[2019-07-28] MEDS: Insulin Glargine 20 UNITS in Pre-Filled Syringe 1 EACH SC SCH (11:25)
[2019-07-28] MEDS: Apixaban 2.5 MG TAB PO SCH ×2 (11:27→21:11)
[2019-07-28] MEDS: Isosorbide Dinitrate 5 MG TAB PO SCH ×2 (11:27→21:09)
[2019-07-28] MEDS: Aspirin Chewable 81 MG TAB PER TUBE SCH (11:27)
[2019-07-28] MEDS: hydrALAZINE 10 MG TAB PO SCH ×3 (11:39→21:10)
--- NOTE | 2019-07-28 13:05 | PDOC.PALCO ---
Palliative Care Consult - Consult Details Requesting Physician: Dr Penny Reason for Consult: complex decision-making Family Members Present: Both patients daughters - Pertinent HPI 64 year old female who had an onset of shortness of breath, cough two days prior to admission. Symptoms had not known trigger and no alleviating factor, progressively worsening. Presented to the emergency room on 07/20/19 and while in the emergency room patient symptoms worsened and was intubated and sedated. Further evaluation in the emergency room identified non stemi. Initial evaluation called for admission to the ICU for the following medical problems: Acute congestive heart failure, [id number] myocardial infarction, respiratory failure, multifocal pneumonia. Eventually extubated, and dobhoff placed secondary to dysphagia. - Pertinent PMH Diabetes II, Hypertension, Hypothyroid - Social History Smoking Status: Never smoker Smoking: no tobacco exposure Alcohol Use: none Drug Use History: none Living Situation: with family/parents - Medications MAR Reviewed: Yes - Allergies Allergies/Adverse Reactions: Allergies Allergy/AdvReac Type Severity Reaction Status Date / Time No Known Drug Allergies Allergy Verified 07/23/19 00:26 - Subjective Awake, alert, but appears chronically ill. Ng in place, patient expressed that she is ready to go home. Confirmed that she does not desire to have a PEG placed. ROS: 10 point review identified intermittent nausea and weakness, otherwise negative. - Objective Vital Signs: Vital Signs - Most Recent Temp Pulse Resp BP Pulse Ox 98.5 F 75 12 141/66 H 93 L 07/28/19 12:00 07/28/19 12:00 07/28/19 12:00 07/28/19 12:00 07/28/19 12:00 Palliative Performance Scale: 40 - Physical Exam Constitutional: NAD Deviation from normal: Chronically ill appearing HEENT: sclera anicteric, EOMI Respiratory: no wheezing, clear to auscultation bilateral, unlabored breathing Cardiovascular: RRR, no significant murmur Gastrointestinal: soft, non-tender, positive bowel sounds Musculoskeletal: no edema, pulses present Neurological: moves all 4 limbs Psychiatric: A&O x 3 Skin: no rash, cap refill <2 seconds - Problem List (1) Palliative care encounter Code(s): Z51.5 - ENCOUNTER FOR PALLIATIVE CARE Current Visit: Yes Status: Acute - Plan/Recommendations Plan: Patient and family have opted to seek management of symptoms and no treatment for medical conditions. [facility] and family. Patient desires to have ng tube removed, go home, and enjoy coffee and tamales. Education in relation to aspiration precautions. [30] minutes spent on this encounter with >50% of the time in counseling and coordination of care. Thank you for this very appropriate consult.
[2019-07-28] MEDS: Carvedilol 3.125 MG TAB PO SCH (14:09)
[2019-07-28] MEDS: Carvedilol 6.25 MG TAB PO SCH (15:54)
--- NOTE | 2019-07-28 20:00 | PDOC.HOSPP ---
- Subjective Encounter Date: 07/28/19 Encounter Time: 13:00 Subjective: The patient met with palliative care today and are proceeding with hospice. The patient had her NG tube removed today and speech saw her and advanced her diet. They understood the risks of aspiration with this. - Objective Vital Signs & Weight: Vital Signs (12 hours) Temp Pulse Resp BP BP Pulse Ox 07/28/19 19:37 98.5 F 70 18 115/55 L 88 L 07/28/19 15:54 129/85 07/28/19 15:53 71 144/69 H 07/28/19 15:42 98.4 F 71 20 144/69 H 92 L 07/28/19 14:21 70 16 07/28/19 12:00 98.5 F 75 12 141/66 H 93 L 07/28/19 11:39 75 129/85 07/28/19 11:27 123/58 L 07/28/19 10:52 75 16 96 07/28/19 08:31 72 16 96 07/28/19 08:00 92 L Weight Admit Weight 121 lb Weight 113 lb 8 oz Most Recent Monitor Data Heart Rate from ECG 108 NIBP 136/69 NIBP BP-Mean 91 Respiration from ECG 18 SpO2 97 I&O: 07/27/19 07/28/19 07/29/19 06:59 06:59 06:59 Intake Total 1605 90 30 Output Total 0237 768 7350 Balance 326 -295 -771 Result Diagrams: 07/28/19 04:14 07/28/19 04:14 Additional Labs: Accuchecks 07/28/19 07/28/19 07/28/19 18:10 12:07 06:17 POC Glucose 186 H 219 H 241 H 07/27/19 23:24 POC Glucose 181 H Hospitalist ROS - Review of Systems Constitutional: denies: fever, chills, sweats, weakness - Medication Medications: Active Medications Generic Name Dose Route Start Last Admin Trade Name Freq PRN Reason Stop Dose Admin Acetaminophen 650 mg 07/20/19 00:28 07/26/19 22:46 Tylenol PO 650 mg Q4H PRN Administration Headache/Fever/Mild Pain (1-3) Acetaminophen 650 mg 07/20/19 00:28 07/22/19 10:58 Tylenol [place] 650 mg Q4H PRN Administration Headache/Fever/Mild Pain (1-3) Albuterol/Ipratropium 3 ml 07/26/19 14:30 07/28/19 19:13 Duoneb NEB Not Given [id number] SHILO Apixaban 2.5 mg 07/23/19 21:00 07/28/19 11:27 Eliquis PO 2.5 mg BID SHILO Administration Aspirin 81 mg 07/23/19 09:00 07/28/19 11:27 Aspirin Chewable PER TUBE 81 mg DAILY SHILO Administration Atorvastatin Calcium 40 mg 07/26/19 21:00 07/27/19 21:31 Lipitor PO 40 mg HS SHILO Administration Carvedilol 6.25 mg 07/28/19 17:00 07/28/19 15:54 Coreg PO 6.25 mg BID-WM SHILO Administration Hydralazine HCl 25 mg 07/26/19 15:00 07/28/19 15:53 Apresoline PO 25 mg TID SHILO Administration Insulin Glargine 20 units/ 0.2 mls @ 0 mls/hr 07/26/19 09:00 07/28/19 11:25 Miscellaneous Medication SC 0.2 mls QAM SHILO Administration Insulin Human Regular 0 units 07/25/19 11:16 07/28/19 18:31 Humulin R SC 3 unit .AGGRESSIVE SLIDING PRN Administration Aggressive Correctional Scale Isosorbide Dinitrate 10 mg 07/27/19 21:00 07/28/19 11:27 Isordil PO 10 mg BID SHILO Administration Ondansetron HCl 4 mg 07/20/19 00:28 07/23/19 11:31 Zofran Odt PO 4 mg Q6H PRN Administration Nausea/Vomiting Ondansetron HCl 4 mg 07/20/19 00:28 07/22/19 10:58 Zofran IVP 4 mg Q6H PRN Administration Nausea/Vomiting Sodium Chloride 10 ml 07/20/19 09:00 07/28/19 11:28 Flush - Normal Saline IVF 10 ml Q12HR SHILO Administration Sodium Chloride 10 ml 07/21/19 08:58 07/23/19 09:22 Flush - Normal Saline IVF 10 ml PRN PRN Administration Saline Flush - Exam General Appearance: NAD, awake alert, ill appearing Eye: PERRL, anicteric sclera ENT: normocephalic atraumatic, no oropharyngeal lesions Neck: supple, symmetric, no JVD Heart: RRR, no murmur, no gallops Respiratory: CTAB, no wheezes, no rales, no ronchi Gastrointestinal: soft, non-tender, non-distended Extremities: no cyanosis, no clubbing, no edema Skin: normal turgor, no lesions, no rashes Neurological - other findings: able to follow commands and move all four extremities Musculoskeletal: normal tone, normal strength, no muscle wasting Psychiatric: normal affect, normal behavior, A&O x 3, oriented to person, oriented to place, oriented to time Hosp A/P - Plan MRI Brain: large acute infarct in anterior distribution of right MCA, involving right frontal lobe with mass effect with leftward shift, small acute infarct of left occipital lobe This is a 64 year old female who presented with NSTEMI, was admitted to the ICU. Subsequently developed stroke, multi-focal pneumonia, has systolic heart failure and kidney failure, malnutrition on NG tube feeds NSTEMI - ECHO showed EF 25% with small pericardial effusion, moderate MR mild TR - continue aspirin, atorvastatin 40 mg qhs, coreg 3.125 mg bid, imdur 10 mg po bid Acute CHF - resolving - was getting lasix IV daily, discontinued on 07/27. Continue to monitr DESTINY - improved - held lasix, creatinine decreased to 2.6 - renal ultrasound 07/23 shows no obstruction Type II diabetes - glargine 20 units qam - on apixaban Protein Calorie malnutrition -NG tube discontinued, diet advanced to pureed Leukocytosis - WBC increased to 12.0, no fevers continue to monitor Anemia of chronic disease with iron deficiency - iron sat extremely low at 5%, may benefit from IV iron, gave one dose on Hypertension - on imdur and hydralazine Headache - tylenol prn Disposition: d/c to hospice [facility]
[2019-07-28] MEDS: Atorvastatin Calcium 40 MG TAB PO SCH (21:11)
[2019-07-29 05:17] LABS: Hemoglobin 9.4 g/dL (12.0-16.0); Mean Corpuscular HGB CONC 32.6 g/dL (32.0-36.0); Mean Corpuscular Hemoglobin 28.3 pg (27.0-31.0); Mean Platelet Volume 8.4 fL (7.4-10.4); Platelet Count 255 thou/uL (130-400); RBC Distribution Width 13.7 % (11.5-14.5); Red Blood Cell (RBC) Count 3.32 mill/uL (4.20-5.40); White Blood Cell (WBC) Count 10.1 thou/uL (4.8-10.8)
[2019-07-29 05:18] LABS: #Basophils 0.1 thou/uL (0.0-0.2); #Eosinphils 0.2 thou/uL (0.0-0.7); #Lymphocytes 1.3 thou/uL (1.20-3.40); #Monocytes 0.5 thou/uL (0.11-0.59); %Basophils 0.6 % (0.0-1.0); %Eosinophils 2.2 % (0.0-10.0); %Lymphocytes 13.1 % (21.0-51.0); %Monocytes 5.2 % (0.0-10.0); %Neutrophils 78.9 % (42.0-75.0); Hemoglobin 9.4 g/dL (12.0-16.0); Mean Corpuscular HGB CONC 33.1 g/dL (32.0-36.0); Mean Corpuscular Hemoglobin 28.8 pg (27.0-31.0); Mean Platelet Volume 8.3 fL (7.4-10.4); Platelet Count 263 thou/uL (130-400); RBC Distribution Width 13.8 % (11.5-14.5); Red Blood Cell (RBC) Count 3.27 mill/uL (4.20-5.40); White Blood Cell (WBC) Count 10.1 thou/uL (4.8-10.8)
[2019-07-29 05:23] LABS: Anion Gap 12 mmol/L (10-20); BUN (Urea Nitrogen) 74 mg/dL (9.8-20.1); Calc. Creatinine Clearance 21 mL/min (70-130); Calcium 8.3 mg/dL (7.8-10.44); Carbon Dioxide 23 mmol/L (23-31); Chloride 110 mmol/L (98-107); Estimated GFR-MDRD 22; Glucose 91 mg/dL (80-115); Sodium 141 mmol/L (136-145)
[2019-07-29] MEDS: Carvedilol 6.25 MG TAB PO SCH ×2 (09:17→14:23)
[2019-07-29] MEDS: Apixaban 2.5 MG TAB PO SCH (09:18)
[2019-07-29] MEDS: Aspirin Chewable 81 MG TAB PER TUBE SCH (09:18)
[2019-07-29] MEDS: hydrALAZINE 10 MG TAB PO SCH ×2 (09:18→14:22)
[2019-07-29] MEDS: Isosorbide Dinitrate 5 MG TAB PO SCH (09:18)
[2019-07-29] MEDS: Insulin Glargine 20 UNITS in Pre-Filled Syringe 1 EACH SC SCH (09:20)
[2019-07-29] MEDS: Acetaminophen 325 MG TAB PO PRN (09:20)
--- NOTE | 2019-07-29 09:54 | PRG ---
DATE OF SERVICE: 07/29/2019 SERVICE: Renal Medicine. SUBJECTIVE: Ms. Millard is a 64-year-old female, who was admitted for CHF, developed CVA - secondary to cardioembolic phenomenon, and here being followed by Renal Service for her acute kidney injury that was hemodynamically-mediated dysfunction. This morning, no new complaints. No acute events noted last night. OBJECTIVE: VITAL SIGNS: Blood pressure 130/59, heart rate 70, respiratory rate 14, temperature 98.7, and pulse ox 91%. GENERAL: The patient is awake and follows simple commands. She is verbal. HEENT: Pinkish conjunctivae. Anicteric sclerae. NECK: No neck mass. No carotid bruits. No JVD. CHEST: No deformities. LUNGS: Decreased breath sounds. HEART: Normal sinus rhythm. No murmurs. No gallops. No rubs. ABDOMEN: Globular, soft, and nontender. No masses. EXTREMITIES: No edema. No deformities. NEUROLOGIC: Mildly dysarthric. Decreased motor in lower extremities. MEDICATIONS: Medications of July 29, 2019, were reviewed. LABORATORY DATA: Laboratories of July 29, 2019; white count 10.1, hemoglobin 9.4. Sodium 141, potassium 4, chloride 110, carbon dioxide 23, BUN 74, creatinine 2.24, and calcium 8.3. ASSESSMENT AND PLAN: 1. Acute kidney injury, hemodynamically-mediated renal dysfunction. Please note, the patient's diuretic is on hold. Renal function is actually improving. No indication for any dialytic intervention. Continue supportive care. 2. Status post CVA. Continue supportive care. Awaiting rehab placement. Job ID: [id number]
[2019-07-29 11:02] VITALS: TEMP 98.3
[2019-07-29] MEDS ORDERED: Senokot 8.6 MG TAB PO PRN (14:02)
[2019-07-29] MEDS ORDERED: Polyethylene Glycol 3350 17 GM Packet PO PRN (14:02)
[2019-07-29 14:23] VITALS: BP 135/75
[2019-07-29] MEDS ORDERED: Isosorbide Dinitrate 5 MG TAB PO SCH (15:00)
[2019-07-29] MEDS ORDERED: Docusate 100 MG CAP PO SCH (21:00)
--- NOTE | 2019-07-30 03:52 | PQF ---
[employer] Crystal Reports Winform Viewer AIDEN EWING FR[place]ICK [place] MD [id number] CLINICAL DOCUMENTATION CLARIFICATION FORM: POST DISCHARGE Addendum to original discharge summary date: ____ Late entry note date: __ DATE: 07/30/19 ATTN: Joao Lim Please exercise your independent, professional judgment in responding to the clarification form. Clinical indicators are provided on the bottom of this form for your review Can you please further specify the diagnosis based on the clinical indicators below? Please check appropriate box(es): [ ] Sepsis due to: (Pna, UTI, gangrenous gall bladder, etc.) [ ] SIRS due to non-infectious process (please specify etiology) [ ] with organ dysfunction [ ] without organ dysfunction [ ] Severe sepsis with acute organ dysfunction of: (Examples: respiratory failure, encephalopathy, acute kidney failure, other) [ ] Septic Shock [ ] Localized infection without sepsis [x ] Other diagnosis please specify Acute kidney Inury/CVA secondary to cardioembolic etiology [ ] Unable to determine In addition, please specify: Present on Admission (POA): [ ] Yes [ ] No [x ] Unable to determine For continuity of documentation, please document condition throughout progress notes and discharge summary. Thank You. CLINICAL INDICATORS - SIGNS / SYMPTOMS / LABS ED Provider 07/20 pg.6- Primary Septic Shock from pneumonia H and P 10 pg.1- the CAT scan showed bilateral pleural effusion and also possible pneumonia H and P pg.2- Vital sign: BP 131/63, HR 99, Respiratory rate 28, Temperature 98.2 H and P pg.2- The patient went into hypotension and shock. The patient was started on Levophed Laboratory 07/20- WBC 12.6H, 10.1, 10.9H, 12.0H RISK FACTORS Acute exacerbation of congestive heart failure- H and P pg.3 Lactic acidosis-H and P pg.3 Acute hypoxic respiratory failure-H and P pg.3 Possible multifocal pneumonia-H and P pg.3 TREATMENTS: Chest X ray 07/19 Azithromycin 500mg IV- DEC 19 Ceftriaxone 2gm IV DEC 19 Vancomycin 1gm iIV- DEC 19 Norepinephrine (Levophed)8mg IV 07/19- DEC IV Fluids- DEC 19This form is maintained as a part of the permanent medical record) 2014 [employer], [employer]. All Rights Reserved Peter [email or web address] [not provided] MTDD
--- NOTE | 2019-08-01 12:19 | DIS ---
DATE OF ADMISSION: 07/20/2019 DATE OF DISCHARGE: 07/29/2019 ADMITTING DIAGNOSES: Acute exacerbation of congestive heart failure, Jat-UB-zydszuklv myocardial infarction, diabetes, lactic acidosis , acute hypoxic respiratory failure with hypercapnia, multifocal pneumonia, respiratory acidosis. DISCHARGE DIAGNOSES: Rci-NK-autfjvpte myocardial infarction, acute systolic CHF , acute kidney injury, severe protein-calorie malnutrition, sepsis secondary to multifocal pneumonia. CONSULTATIONS: Critical Care with Dr. Brijesh Werner, cardiology Dr. Danilo Causey, oncology Dr. Lizette Figueroa, Palliative Care consultation, nephrology Dr. Joao Jolley, neurology Dr. Antwan Campbell PROCEDURES: None. BRIEF HPI: This is a 64 year old female with PMH Of diabetes, hyperlipidemia, hypertension who presented with chest pain, shortness of breath and cough for the past two days. While in the ER, the patient developed severe shortness of breath and was intubated and sedated. CAT scan showed diffuse bilateral patchy opacities throughout the lung, which could be pneumonia versus edema. She was admitted to the ICU. HOSPITAL COURSE: Acute hypoxic respiratory failure secondary to NSTEMI and multifocal pneumonia/ DESTINY/dysphagia the patient was treatd with IV ceftriaxone and azithromycin from 07/20 to 07/25. She was also given IV lasix from 06/20 to 06/23 due to decompensated heart failure noted on ECHO. The patient was eventually extubated on 07/21/2019. After extubation it was noted she was nonverbal and had left-sided neglect. MRI brain showed an acute stroke in right MCA, right frontal lobe and left occpital lobe. Neurology was consulted and started the patient on anticoagulation and recommended considering PEG for dysphagia. The patient was started on Eliquis 2.5 mg p.o. bid. She was fed through NG feedings, but when PEG tube placement was discussed the patient refused and wanted to "." Palliative care was consulted and the patient was set up for [facility] care. With regards to kidney injury, renal ultrasound was unremarkable and lasix was held with improvement in creatinine to 2.24. She was discharged with this on a prn basis. NSTEMI with acute CHF: Echo showed EF of 25% with mild pericardial effusion, moderate MR, mild TR. She was discharged on aspirin, atorvastatin, Coreg, and Imdur. Lasix was held on discharge due to malnutrition, which she was advised to resume this if she has increasing chest congestion or leg swelling Type-2 diabetes: The patient was started on glargine 20 units qam Acute stroke in the right MCA, right frontal lobe, and left occipital lobe: Neurology was consulted and she was started on apixaban since it was thought to be cardioembolic. She was also started on aspirin, atorvastatin. She was requiring NG tube feeding but this was discontinued after patient elected to do hospice. Leukocytosis: Initially white count of 11.2 which peaked to 14.9 on 07/22. She was treated with ceftriaxone and azithromycin for five days. Blood cultures were negative. Urine culture was normal. Anemia of chronic disease with iron deficiency: The patient was noted to have a hemoglobin of 6.7 on 07/21/2019. The patient received 2 units of blood with improvement in hemoglobin to 10. Oncology was consulted and most likely had iron-deficiency anemia and that she was not taking her iron over the past 3 to 4 months. They also felt that she had CKD contributing to her anemia and that the low hemoglobin was likely dilutional. They did not recommend a bone marrow biopsy. Recommendation is to continue iron supplements at hospice. She did receive a dose of IV iron 07/27 . Hypertension: Continue imdur and hydralazine. Severe Protein Calorie Malnutrition: The patient initially had NG tube in place, which was discontinued. Speech saw the patient and recommended the patient to be on pureed diet. Comptometer Operator was used to communicate the risks of eating a pureed diet, given her dysphagia and her stroke. The patient accepted the risks of aspiration with this. DISCHARGE PHYSICAL EXAMINATION: VITAL SIGNS: On 07/29/2019, temperature 98.3, heart rate 65, RR 16, blood pressure 124/56. GENERAL: Alert, awake, and oriented x3. The patient is mostly non-verbal. She is able to follow commands and nod yes or no questions. NEUROLOGIC: PERRLA. CN II - XII Intact. The patient noted to have full range of motion of her extremities. She has 4/5 strength in left side and 5/5 in the right side. CVS: Regular rate and rhythm. No murmurs, rubs, or gallops. LUNGS: Clear to auscultation bilaterally. ABDOMEN: Soft, nontender, nondistended. Positive bowel sounds. EXTREMITIES: No edema. PERTINENT LABS: CBC on 07/29/2019: White blood cell count 10.9, Hb 9.4/29, platelets 255. BMP 07/29/19: sodium 140, chloride 110, BUN 74, creatinine 2.24. Lactic acid 07/20: 3.0 Iron panel: Serum iron 10, TIBC 194, % sat 5, ferritin 226 Vitamin B12 : > 2000 Troponin-I : 1.221, 1.081, 1.067 PERTINENT IMAGING: Echo 07/20/2019 : mildly dilated left atrium, right ventricle cavity, LV size moderately increased, moderate MR, mild TR< dilation of IVC, small pericardial effusion Chest x-ray 07/19/2019: Findings concerning for multifocal pneumonia. CTA chest with contrast 07/19/2019: No definitive PE, no dissection. Diffuse scattered bilateral patchy opacities throughout the lung in addition to septal thickening which may be secondary to pulmonary edema versus infectious etiology. Large bilateral pleural effusions. CTA Abdomen with contrast on 07/19: No aortic dissection, no occlusion or significant stenosis. Perihepatic free fluid noted. Gallbladder with wall edema noted, which could be secondary to pulmonary edema. Brain MRI on 07/22/2019: Large acute infarct in the anterior distribution of the right MCA involving the frontal lobe. Mass effect . No hydrocephalus. Small area of acute infarct in the . Abdominal x-ray on 07/23/2019: Visualized bowel-gas pattern, nonspecific. Dobbhoff feeding tube in the right upper quadrant. Renal ultrasound on 07/23/2019: No evidence of high-grade obstruction. Chest x-ray on 07/24/2019: Persistent bilateral interstitial and alveolar opacity changes and bilateral pleural effusions concerning for pulmonary edema slightly improved. Chest x-ray 07/26/19: There is perihilar edema. DISCHARGE CONDITION: The patient appears chronically ill, but currently stable. She is not very verbal, but follows commands and is being discharged to hospice. ACTIVITY: As tolerated. DIET: Heart healthy diet. DISCHARGE MEDICATIONS: 1. Acetaminophen 500 mg p.o. p.r.n. 2. Albuterol 2.5 mg neb q.6 hours p.r.n. 3. Apixaban 2.5 mg p.o. b.i.d. 4. Aspirin 81 mg p.o. daily. 5. Atorvastatin 40 mg p.o. at bedtime. 6. Coreg 6.25 mg p.o. b.i.d. 7. Gabapentin 100 mg p.o. t.i.d. 8. Hydralazine 25 mg p.o. t.i.d. 9. Insulin glargine 20 units subcu q.a.m. 10. Insulin sliding scale. 11. Iron 18 mg po daily 12. Imdur 10 mg p.o. t.i.d. 13. Levothyroxine 50 mcg p.o. daily. 14. Zofran 4 mg p.o. q.6 hours. Discharge follow up: patient discharged with hospice. Can follow up with PCP in a week Job ID: [id number] [facility]
== END 2019-07-29 15:40 | disposition hospice, home (50) | DRG 871 ==
LOC: ERS 21:32 → CCU 07-20 01:43 → 2SE 07-22 20:16
PROVIDERS: ADMIT Hospitalist; ATTEND Hospitalist
PROC: 5A1945Z Respiratory Ventilation, 24-96 Consecutive Hours (ICD-10-PCS; principal; 2019-07-20)
PROC: 0BH17EZ Insertion of Endotracheal Airway into Trachea, Via Natural or Artificial Opening (ICD-10-PCS; 2019-07-20)
PROC: 02HV33Z Insertion of Infusion Device into Superior Vena Cava, Percutaneous Approach (ICD-10-PCS; 2019-07-20)
PROC: 3E033XZ Introduction of Vasopressor into Peripheral Vein, Percutaneous Approach (ICD-10-PCS; 2019-07-20)
PROC: 3E02340 Introduction of Influenza Vaccine into Muscle, Percutaneous Approach (ICD-10-PCS; 2019-07-21)
DX: A41.9 Sepsis, unspecified organism (principal); J96.21 Acute and chronic respiratory failure with hypoxia; I21.4 Non-ST elevation (NSTEMI) myocardial infarction; J18.9 Pneumonia, unspecified organism; I50.23 Acute on chronic systolic (congestive) heart failure; I63.411 Cerebral infarction due to embolism of right middle cerebral artery; E43 Unspecified severe protein-calorie malnutrition; J96.22 Acute and chronic respiratory failure with hypercapnia; E87.1 Hypo-osmolality and hyponatremia; N17.9 Acute kidney failure, unspecified; E87.2 Acidosis; G81.94 Hemiplegia, unspecified affecting left nondominant side; I42.9 Cardiomyopathy, unspecified; I13.0 Hypertensive heart and chronic kidney disease with heart failure and stage 1 through stage 4 chronic kidney disease, or unspecified chronic kidney disease; Z51.5 Encounter for palliative care; Z66 Do not resuscitate; Z23 Encounter for immunization; E78.5 Hyperlipidemia, unspecified; E78.00 Pure hypercholesterolemia, unspecified; E87.5 Hyperkalemia; L65.9 Nonscarring hair loss, unspecified; R13.10 Dysphagia, unspecified; E11.22 Type 2 diabetes mellitus with diabetic chronic kidney disease; D63.1 Anemia in chronic kidney disease; D50.9 Iron deficiency anemia, unspecified; R51 Headache; Z68.22 Body mass index [BMI] 22.0-22.9, adult; Z79.4 Long term (current) use of insulin; Z79.899 Other long term (current) drug therapy
CPT/HCPCS: 31500; 36415; 36416; 36430; 36556; 51702; 70551; 71045; 71275; 72191; 74018; 74175; 76770; 80048; 80053; 81001; 82553; 82570; 82607; 82728; 82746; 82805; 83540; 83550; 83605; 83735; 83880; 84100; 84300; 84443; 84484; 85025; 85046; 85060; 85610; 86038; 86225; 86850; 86900; 86901; 87040; 87071; 87086; 93005; 93010; 93306; 93798; 94002; 94003; 94640; 94660; 96361; 96365; 96367; 96368; 96372; 96375; 96376; J0171; J0360; J0456; J0696; J1250; J1650; J1815; J1940; J2060; J2405; J2704; J2916; J3010; J3370; J3490; J7050; J7070; J7620; P9016; P9047; Q0162; Q9966